=== PATIENT | female | born 1955 | race African-American/Black ===

== ENCOUNTER 2023-02-14 09:50 | Inpatient (IN) | payer MEDICARE, MEDICAID ==
[~2023-02-14] VITALS: Ht 162.6 cm; Wt 93.0 kg
[2023-02-14] MEDS ORDERED: SODIUM CHLORIDE 0.9% 1000ML BAG (SEPSIS BOLUS) IV ONE (10:15)
[2023-02-14 10:49] LABS: BASOPHILS % 0.7 % (0.0-2.0); EOSINOPHILS % 9.9 % (0.0-5.0); HEMOGLOBIN. 12.4 g/dL (12.0-16.0); LYMPHOCYTES % 29.6 % (20.0-50.0); MEAN CORPUSCULAR HEMOGLOBIN 31.1 pg (28.0-32.0); MEAN CORPUSCULAR HGB CONC 33.4 g/dL (31.0-37.0); MEAN CORPUSCULAR VOLUME 93.1 fL (81.0-99.0); MEAN PLATELET VOLUME 8.9 fl (7.4-10.4); MONOCYTES % 9.4 % (2.0-8.0); NEUTROPHILS % 50.4 % (40.0-76.0); PLATELET 360 x1000/uL (130-400); RED BLOOD CELL COUNT 3.97 mill/uL (4.2-5.4); RED CELL DISTRIBUTION WIDTH 14.7 % (11.6-14.6); WHITE BLOOD COUNT 6.5 x1000/uL (4.5-11.0)
[2023-02-14 10:57] LABS: CHLORIDE 103 mEq/L (98-107); INDEX HEMOLYSI 1 (1-3); INDEX ICTERIC 1 (1-4); INDEX LIPEMIC 1 (1-3); POTASSIUM 3.4 mEq/L (3.5-5.1); SODIUM 134 mEq/L (136-145)
[2023-02-14 11:10] LABS: ALANINE AMINOTRANSFERASE 45 IU/L (13-61); ALBUMIN 3.1 g/dL (3.4-5.0); ASPARTATE AMINOTRANSFERASE 54 IU/L (15-37); BILIRUBIN TOTAL 1.1 mg/dL (0.1-1.0); CALCIUM 9.8 mg/dL (8.5-10.1); CARBON DIOXIDE 27 mEq/L (21-32); CREATININE 1.7 mg/dL (0.6-1.3); GLUCOSE 96 mg/dL (70-105); PROTEIN TOTAL 7.6 g/dL (6.0-8.3); UREA NITROGEN BLOOD 15 mg/dL (7-21)
[2023-02-14 12:01] LABS: TROPONIN I HIGH SENSITIVITY 86 ng/L (<54)
[2023-02-14] MEDS ORDERED: CLONIDINE 0.1MG TABLET PO PRN (15:45)
[2023-02-14] MEDS ORDERED: ZOLPIDEM TARTRATE 5MG TABLET PO PRN (15:45)
[2023-02-14] MEDS ORDERED: IPRATROPIUM/ALBUTEROL 0.5-3(2.5)MG/3ML NEB NEB PRN (15:45)
[2023-02-14] MEDS ORDERED: GUAIFENESIN 200MG/10ML SUGAR FREE UDC PO PRN (15:45)
[2023-02-14] MEDS ORDERED: ONDANSETRON HCL 4MG/2ML INJ IV PRN (15:45)
[2023-02-14] MEDS ORDERED: POTASSIUM CHLORIDE 20MEQ TABLET SR PO NR (15:45)
[2023-02-14 20:00] VITALS: BP 123/73; PULSE 92; RESP 18; TEMP 99.2
[2023-02-14] MEDS: ACETAMINOPHEN 325MG TABLET PO PRN (20:57)
[2023-02-14] MEDS: SODIUM CHLORIDE 0.9% INJ 3ML FLUSH IVF SCH (21:06)
[2023-02-14] MEDS: ENOXAPARIN 40MG/0.4ML SYR SUBCUT SCH (21:43)
[2023-02-14 22:00] VITALS: BP 133/84; PULSE 95; RESP 18; TEMP 97.9
[2023-02-14] MEDS ORDERED: LATA2.5D14 LEFTEYE (22:11)
[2023-02-14] MEDS ORDERED: BRIM5DRO6 LEFTEYE (22:11)
[2023-02-14] MEDS ORDERED: DORZ1DRO7 LEFTEYE (22:11)
[2023-02-14] MEDS ORDERED: ASPI-1406 PO (22:13)
[2023-02-14] MEDS ORDERED: METO25TA6 PO (22:13)
[2023-02-14] MEDS ORDERED: PANT40TA51 PO (22:13)
[2023-02-14] MEDS ORDERED: LISI10TA26 PO (22:13)
[2023-02-14] MEDS ORDERED: ATOR-2 PO (22:13)
[2023-02-14] MEDS ORDERED: ALBU6.7H3 IH (22:13)
[2023-02-14] MEDS ORDERED: AMLO10TA80 PO (22:13)
[2023-02-14] MEDS: SODIUM CHLORIDE 0.9% 1,000 ML IV SCH (22:23)
[2023-02-15] VITALS (8 sets, daily range): BP systolic 95–135; BP diastolic 54–91; PULSE 79–107; RESP 18–20; TEMP 97.1–99.8
[2023-02-15] MEDS: BRIMONIDINE 0.2% OPHTH DROPS 5ML LEFTEYE SCH ×4 (01:20→21:06)
[2023-02-15] MEDS: LATANOPROST 0.005% OPHTH DROPS 2.5ML LEFTEYE SCH ×2 (01:20→21:06)
[2023-02-15] MEDS: SODIUM CHLORIDE 0.9% INJ 3ML FLUSH IVF SCH ×3 (05:32→21:05)
[2023-02-15] MEDS: ASPIRIN 81MG EC TABLET PO SCH (09:09)
[2023-02-15] MEDS: CHOLECALCIFEROL (D3) 1000 UNIT TABLET PO SCH (09:09)
[2023-02-15] MEDS: FOLIC ACID 1MG TABLET PO SCH (09:10)
[2023-02-15] MEDS: DORZOLAM/TIMOLOL 2.23/0.68% OPHTH DROPS 10ML LEFTEYE SCH ×2 (09:10→21:06)
[2023-02-15] MEDS: SODIUM CHLORIDE 0.9% 1,000 ML IV SCH ×2 (09:11→18:24)
[2023-02-15 13:03] LABS: HEPATITIS B SURFACE ANTIGEN NEGATIVE
[2023-02-15 13:31] LABS: HEPATITIS C VIR.AB 0.16 INDEXVAL (0.00-0.80)
[2023-02-15] MEDS: ENOXAPARIN 40MG/0.4ML SYR SUBCUT SCH (17:41)
[2023-02-15] MEDS: ATORVASTATIN CALCIUM 40MG TABLET PO SCH (21:05)
[2023-02-16] VITALS (7 sets, daily range): BP systolic 102–151; BP diastolic 59–94; PULSE 85–100; RESP 18–20; TEMP 97.7–98.8
[2023-02-16] MEDS: SODIUM CHLORIDE 0.9% 1,000 ML IV SCH ×2 (03:32→13:59)
[2023-02-16] MEDS: SODIUM CHLORIDE 0.9% INJ 3ML FLUSH IVF SCH ×3 (05:38→21:42)
[2023-02-16] MEDS: BRIMONIDINE 0.2% OPHTH DROPS 5ML LEFTEYE SCH ×3 (05:40→21:42)
[2023-02-16] MEDS: ASPIRIN 81MG EC TABLET PO SCH (08:46)
[2023-02-16] MEDS: CHOLECALCIFEROL (D3) 1000 UNIT TABLET PO SCH (08:46)
[2023-02-16] MEDS: FOLIC ACID 1MG TABLET PO SCH (08:46)
[2023-02-16] MEDS: DORZOLAM/TIMOLOL 2.23/0.68% OPHTH DROPS 10ML LEFTEYE SCH ×2 (08:47→21:41)
[2023-02-16] MEDS: ACETAMINOPHEN 325MG TABLET PO PRN (13:43)
[2023-02-16] MEDS ORDERED: HALOPERIDOL LACTATE 5MG/ML VIAL IM NR (16:45)
[2023-02-16] MEDS: ENOXAPARIN 40MG/0.4ML SYR SUBCUT SCH (17:28)
[2023-02-16] MEDS: NICOTINE 14MG PATCH TD SCH (17:38)
[2023-02-16] MEDS: PANTOPRAZOLE SODIUM 40 MG/VIAL IV SCH (17:41)
[2023-02-16] MEDS: POTASSIUM CHLORIDE INJ 10 MEQ in DEXT 5%/0.9% NACL 1,000 ML IV SCH (17:41)
[2023-02-16] MEDS: LATANOPROST 0.005% OPHTH DROPS 2.5ML LEFTEYE SCH (21:41)
[2023-02-16] MEDS: ATORVASTATIN CALCIUM 40MG TABLET PO SCH (21:41)
[2023-02-17] VITALS: BP 110/62; PULSE 90; RESP 18; TEMP 98.6
[2023-02-17] MEDS: POTASSIUM CHLORIDE INJ 10 MEQ in DEXT 5%/0.9% NACL 1,000 ML IV SCH ×3 (05:44→23:59)
[2023-02-17] MEDS: SODIUM CHLORIDE 0.9% INJ 3ML FLUSH IVF SCH ×3 (05:45→21:13)
[2023-02-17] MEDS: PANTOPRAZOLE SODIUM 40 MG/VIAL IV SCH ×2 (05:45→18:00)
[2023-02-17] MEDS: BRIMONIDINE 0.2% OPHTH DROPS 5ML LEFTEYE SCH ×3 (05:46→21:13)
[2023-02-17 06:37] LABS: CHLORIDE 110 mEq/L (98-107); INDEX HEMOLYSI 1 (1-3); INDEX ICTERIC 1 (1-4); INDEX LIPEMIC 1 (1-3); POTASSIUM 3.4 mEq/L (3.5-5.1); SODIUM 138 mEq/L (136-145)
[2023-02-17 06:44] LABS: ALANINE AMINOTRANSFERASE 38 IU/L (13-61); ALBUMIN 2.6 g/dL (3.4-5.0); ASPARTATE AMINOTRANSFERASE 53 IU/L (15-37); BILIRUBIN TOTAL 1.1 mg/dL (0.1-1.0); CALCIUM 8.8 mg/dL (8.5-10.1); CARBON DIOXIDE 22 mEq/L (21-32); GLUCOSE 73 mg/dL (70-105); PHOSPHORUS 4.6 mg/dL (2.5-4.9); PROTEIN TOTAL 6.5 g/dL (6.0-8.3); UREA NITROGEN BLOOD 8 mg/dL (7-21)
[2023-02-17 07:29] LABS: BASOPHILS % 0.4 % (0.0-2.0); EOSINOPHILS % 12.6 % (0.0-5.0); HEMATOCRIT. 32.7 % (36.0-48.0); HEMOGLOBIN. 10.9 g/dL (12.0-16.0); LYMPHOCYTES % 25.8 % (20.0-50.0); MEAN CORPUSCULAR HEMOGLOBIN 31.3 pg (28.0-32.0); MEAN CORPUSCULAR HGB CONC 33.2 g/dL (31.0-37.0); MEAN CORPUSCULAR VOLUME 94.5 fL (81.0-99.0); MEAN PLATELET VOLUME 8.8 fl (7.4-10.4); MONOCYTES % 8.6 % (2.0-8.0); NEUTROPHILS % 52.6 % (40.0-76.0); PLATELET 377 x1000/uL (130-400); RED BLOOD CELL COUNT 3.47 mill/uL (4.2-5.4); RED CELL DISTRIBUTION WIDTH 14.9 % (11.6-14.6); WHITE BLOOD COUNT 5.5 x1000/uL (4.5-11.0)
[2023-02-17 07:44] VITALS: BP 131/83; PULSE 100; RESP 20; TEMP 97.5
[2023-02-17] MEDS: FOLIC ACID 1MG TABLET PO SCH (09:00)
[2023-02-17] MEDS: ASPIRIN 81MG EC TABLET PO SCH (09:00)
[2023-02-17] MEDS: CHOLECALCIFEROL (D3) 1000 UNIT TABLET PO SCH (09:00)
[2023-02-17] MEDS: DORZOLAM/TIMOLOL 2.23/0.68% OPHTH DROPS 10ML LEFTEYE SCH ×2 (09:00→20:26)
[2023-02-17] MEDS: NICOTINE 14MG PATCH TD SCH (09:00)
[2023-02-17] MEDS ORDERED: POTASSIUM CHLORIDE INJ 40 MEQ in DEXT 5% WATER 500 ML IV NR (11:00)
[2023-02-17 12:00] VITALS: BP 140/92; PULSE 92; RESP 18; TEMP 97.4
[2023-02-17] MEDS: BUDESONIDE 0.5MG/2ML NEB HHN SCH ×2 (12:31→22:01)
[2023-02-17] MEDS ORDERED: HALOPERIDOL LACTATE 5MG/ML VIAL IM NR (14:00)
[2023-02-17 16:00] VITALS: BP 146/91; PULSE 89; RESP 18; TEMP 97.7
[2023-02-17] MEDS: ENOXAPARIN 40MG/0.4ML SYR SUBCUT SCH (16:30)
[2023-02-17 20:00] VITALS: BP 179/94; PULSE 117; RESP 17; TEMP 98.6
[2023-02-17] MEDS: ACETAMINOPHEN 325MG TABLET PO PRN (20:24)
[2023-02-17] MEDS: ATORVASTATIN CALCIUM 40MG TABLET PO SCH (20:24)
[2023-02-17] MEDS: CLONIDINE 0.1MG TABLET PO PRN (20:24)
[2023-02-17] MEDS: RISPERIDONE 1MG TABLET PO SCH (20:25)
[2023-02-17] MEDS: LATANOPROST 0.005% OPHTH DROPS 2.5ML LEFTEYE SCH (20:25)
[2023-02-17 22:02] VITALS: PULSE 115; RESP 18; O2SAT 96
[2023-02-18] VITALS: BP 177/92; PULSE 110; RESP 22; TEMP 100.6
[2023-02-18] MEDS: HYDRALAZINE 20MG/ML VIAL IV PRN ×2 (00:20→07:01)
[2023-02-18] MEDS: CLONIDINE 0.1MG TABLET PO PRN (03:56)
[2023-02-18 04:00] VITALS: BP 187/104; PULSE 104; RESP 17; TEMP 99.8
[2023-02-18] MEDS: PANTOPRAZOLE SODIUM 40 MG/VIAL IV SCH ×2 (05:18→18:00)
[2023-02-18] MEDS: BRIMONIDINE 0.2% OPHTH DROPS 5ML LEFTEYE SCH ×3 (05:19→21:39)
[2023-02-18] MEDS: SODIUM CHLORIDE 0.9% INJ 3ML FLUSH IVF SCH ×3 (05:19→21:38)
[2023-02-18 06:10] LABS: BASOPHILS % 0.4 % (0.0-2.0); EOSINOPHILS % 10.6 % (0.0-5.0); HEMATOCRIT. 36.7 % (36.0-48.0); HEMOGLOBIN. 12.1 g/dL (12.0-16.0); MEAN CORPUSCULAR HEMOGLOBIN 30.7 pg (28.0-32.0); MEAN CORPUSCULAR VOLUME 93.1 fL (81.0-99.0); MEAN PLATELET VOLUME 8.5 fl (7.4-10.4); PLATELET 412 x1000/uL (130-400); RED BLOOD CELL COUNT 3.94 mill/uL (4.2-5.4); WHITE BLOOD COUNT 5.8 x1000/uL (4.5-11.0)
[2023-02-18 06:15] LABS: INR 1.1; PROTHROMBIN TIME 11.7 sec (9.6-11.0)
[2023-02-18 07:01] LABS: CHLORIDE 110 mEq/L (98-107); INDEX HEMOLYSI 1 (1-3); INDEX ICTERIC 1 (1-4); INDEX LIPEMIC 1 (1-3); POTASSIUM 3.1 mEq/L (3.5-5.1); SODIUM 141 mEq/L (136-145)
[2023-02-18 07:10] LABS: CALCIUM 9.5 mg/dL (8.5-10.1); CARBON DIOXIDE 21 mEq/L (21-32); CREATININE 0.8 mg/dL (0.6-1.3); GLUCOSE 113 mg/dL (70-105); UREA NITROGEN BLOOD 5 mg/dL (7-21)
[2023-02-18 08:00] VITALS: BP 122/67; PULSE 105; RESP 18; TEMP 97.4
[2023-02-18] MEDS ORDERED: POTASSIUM CHLORIDE INJ 40 MEQ in DEXT 5% WATER 500 ML IV ONE (09:30)
[2023-02-18] MEDS: KCL 20MEQ/100ML X 2 FOR TOTAL KCL 40MEQ/200ML IV SCH ×2 (10:07→13:41)
[2023-02-18] MEDS: DORZOLAM/TIMOLOL 2.23/0.68% OPHTH DROPS 10ML LEFTEYE SCH ×2 (10:07→21:36)
[2023-02-18] MEDS: NICOTINE 14MG PATCH TD SCH (10:09)
[2023-02-18] MEDS: CHOLECALCIFEROL (D3) 1000 UNIT TABLET PO SCH (10:11)
[2023-02-18] MEDS: FOLIC ACID 1MG TABLET PO SCH (10:11)
[2023-02-18 12:00] VITALS: BP 137/88; PULSE 103; RESP 20; TEMP 97.1
[2023-02-18] MEDS: CEFAZOLIN 1000MG PREMIX 50 ML IV SCH ×2 (13:42→21:37)
[2023-02-18 16:00] VITALS: BP 135/87; PULSE 114; RESP 18; TEMP 97
[2023-02-18] MEDS ORDERED: PROPOFOL 200MG/20ML VIAL IV ONE (16:38)
[2023-02-18] MEDS ORDERED: ACETAMINOPHEN 650MG SUPP PR NR (17:30)
[2023-02-18 20:00] VITALS: BP 134/71; PULSE 118; RESP 19; TEMP 100.5
[2023-02-18] MEDS: LATANOPROST 0.005% OPHTH DROPS 2.5ML LEFTEYE SCH (21:36)
[2023-02-18] MEDS: ATORVASTATIN CALCIUM 40MG TABLET PO SCH (21:37)
[2023-02-18] MEDS: RISPERIDONE 1MG TABLET PO SCH (21:37)
[2023-02-18] MEDS: POTASSIUM CHLORIDE INJ 10 MEQ in DEXT 5%/0.9% NACL 1,000 ML IV SCH (23:03)
[2023-02-19] VITALS (8 sets, daily range): BP systolic 115–178; BP diastolic 72–86; PULSE 99–116; RESP 17–20; TEMP 97.5–101.1; O2SAT 95
[2023-02-19] MEDS: ACETAMINOPHEN 325MG TABLET PO PRN ×2 (04:34→11:14)
[2023-02-19] MEDS: HYDRALAZINE 20MG/ML VIAL IV PRN (04:35)
[2023-02-19] MEDS: PANTOPRAZOLE SODIUM 40 MG/VIAL IV SCH ×2 (05:00→16:21)
[2023-02-19] MEDS: CEFAZOLIN 1000MG PREMIX 50 ML IV SCH ×2 (05:00→15:19)
[2023-02-19] MEDS: SODIUM CHLORIDE 0.9% INJ 3ML FLUSH IVF SCH ×3 (05:01→22:00)
[2023-02-19] MEDS: BRIMONIDINE 0.2% OPHTH DROPS 5ML LEFTEYE SCH ×3 (05:01→22:00)
[2023-02-19 06:55] LABS: HEMATOCRIT. 34.6 % (36.0-48.0); HEMOGLOBIN. 11.4 g/dL (12.0-16.0); MEAN CORPUSCULAR HEMOGLOBIN 30.8 pg (28.0-32.0); MEAN CORPUSCULAR VOLUME 93.3 fL (81.0-99.0); MEAN PLATELET VOLUME 8.8 fl (7.4-10.4); PLATELET 390 x1000/uL (130-400); RED BLOOD CELL COUNT 3.71 mill/uL (4.2-5.4); WHITE BLOOD COUNT 6.5 x1000/uL (4.5-11.0)
[2023-02-19 07:11] LABS: DIFFERENTIAL COMMENT 1
[2023-02-19] MEDS: FOLIC ACID 1MG TABLET PO SCH (08:28)
[2023-02-19] MEDS: NICOTINE 14MG PATCH TD SCH (08:28)
[2023-02-19] MEDS: ASPIRIN 81MG EC TABLET PO SCH (08:28)
[2023-02-19] MEDS: CHOLECALCIFEROL (D3) 1000 UNIT TABLET PO SCH (08:28)
[2023-02-19] MEDS: DORZOLAM/TIMOLOL 2.23/0.68% OPHTH DROPS 10ML LEFTEYE SCH ×2 (08:29→21:20)
[2023-02-19] MEDS: POTASSIUM CHLORIDE INJ 10 MEQ in DEXT 5%/0.9% NACL 1,000 ML IV SCH ×2 (08:29→19:30)
[2023-02-19 15:58] LABS: CHLORIDE 112 mEq/L (98-107); INDEX HEMOLYSI 1 (1-3); INDEX ICTERIC 1 (1-4); INDEX LIPEMIC 1 (1-3); POTASSIUM 4.1 mEq/L (3.5-5.1); SODIUM 141 mEq/L (136-145)
[2023-02-19 16:07] LABS: CALCIUM 9.7 mg/dL (8.5-10.1); CARBON DIOXIDE 18 mEq/L (21-32); GLUCOSE 175 mg/dL (70-105); UREA NITROGEN BLOOD 9 mg/dL (7-21)
[2023-02-19] MEDS: ENOXAPARIN 40MG/0.4ML SYR SUBCUT SCH (16:21)
[2023-02-19 20:54] LABS: PLATELET ESTIMATE NORMAL
[2023-02-19] MEDS: RISPERIDONE 1MG TABLET PO SCH (21:19)
[2023-02-19] MEDS: ATORVASTATIN CALCIUM 40MG TABLET PO SCH (21:19)
[2023-02-19] MEDS: LATANOPROST 0.005% OPHTH DROPS 2.5ML LEFTEYE SCH (21:20)
[2023-02-19] MEDS ORDERED: RISPERIDONE 1MG TABLET PO SCH (23:00)
[2023-02-20] VITALS: BP 155/88; PULSE 108; RESP 19; TEMP 98.7
[2023-02-20] MEDS: SODIUM CHLORIDE 0.9% INJ 3ML FLUSH IVF SCH ×2 (06:00→14:00)
[2023-02-20 08:00] VITALS: BP 185/95; PULSE 113; RESP 20; TEMP 97.8
[2023-02-20] MEDS: CHOLECALCIFEROL (D3) 1000 UNIT TABLET PO SCH (09:44)
[2023-02-20] MEDS: FOLIC ACID 1MG TABLET PO SCH (09:44)
[2023-02-20] MEDS: NICOTINE 14MG PATCH TD SCH (09:44)
[2023-02-20] MEDS: ASPIRIN 81MG EC TABLET PO SCH (09:44)
[2023-02-20] MEDS: THIAMINE HCL 100MG TABLET GT SCH (09:44)
[2023-02-20] MEDS: CLONIDINE 0.1MG TABLET PO PRN ×2 (09:45→16:48)
[2023-02-20] MEDS: DORZOLAM/TIMOLOL 2.23/0.68% OPHTH DROPS 10ML LEFTEYE SCH ×2 (09:49→21:00)
[2023-02-20 12:00] VITALS: BP 170/101; PULSE 117; RESP 20; TEMP 97.7
[2023-02-20] MEDS: ENOXAPARIN 40MG/0.4ML SYR SUBCUT SCH (16:30)
[2023-02-20] MEDS: METOPROLOL TARTRATE 25MG TABLET GT SCH ×2 (17:34→22:29)
[2023-02-20] MEDS: LATANOPROST 0.005% OPHTH DROPS 2.5ML LEFTEYE SCH (21:00)
[2023-02-20] MEDS: ATORVASTATIN CALCIUM 40MG TABLET PO SCH (22:28)
[2023-02-20] MEDS: RISPERIDONE 1MG TABLET PO SCH (22:28)
[2023-02-21] VITALS: BP 109/70; PULSE 100; RESP 16; TEMP 98.4
[2023-02-21 04:00] VITALS: BP 98/59; PULSE 101; RESP 16; TEMP 97.9
[2023-02-21] MEDS: PANTOPRAZOLE SODIUM 40 MG/VIAL IV SCH ×2 (06:26→17:42)
[2023-02-21 08:00] VITALS: BP 102/62; PULSE 119; RESP 20; TEMP 98.9
[2023-02-21] MEDS: METOPROLOL TARTRATE 25MG TABLET GT SCH ×2 (09:07→21:14)
[2023-02-21] MEDS: THIAMINE HCL 100MG TABLET GT SCH (09:07)
[2023-02-21] MEDS: ASPIRIN 81MG EC TABLET PO SCH (09:07)
[2023-02-21] MEDS: CHOLECALCIFEROL (D3) 1000 UNIT TABLET PO SCH (09:07)
[2023-02-21] MEDS: NICOTINE 14MG PATCH TD SCH (09:07)
[2023-02-21] MEDS: POTASSIUM CHLORIDE INJ 10 MEQ in DEXT 5%/0.9% NACL 1,000 ML IV SCH ×3 (09:10→20:21)
[2023-02-21] MEDS: DORZOLAM/TIMOLOL 2.23/0.68% OPHTH DROPS 10ML LEFTEYE SCH ×2 (09:10→21:00)
[2023-02-21] MEDS: FOLIC ACID 1MG TABLET PO SCH (10:18)
[2023-02-21 12:00] VITALS: BP 103/64; PULSE 91; RESP 20; TEMP 96.8
[2023-02-21 16:00] VITALS: BP 108/61; PULSE 96; RESP 20; TEMP 97
[2023-02-21] MEDS: ENOXAPARIN 40MG/0.4ML SYR SUBCUT SCH (17:38)
[2023-02-21 20:00] VITALS: BP 141/78; PULSE 98; RESP 18; TEMP 98
[2023-02-21] MEDS: LATANOPROST 0.005% OPHTH DROPS 2.5ML LEFTEYE SCH (21:00)
[2023-02-21] MEDS: RISPERIDONE 1MG TABLET PO SCH (21:13)
[2023-02-21] MEDS: ATORVASTATIN CALCIUM 40MG TABLET PO SCH (21:13)
[2023-02-22] VITALS: BP 141/78; PULSE 90; RESP 18; TEMP 97.5
[2023-02-22] MEDS: POTASSIUM CHLORIDE INJ 10 MEQ in DEXT 5%/0.9% NACL 1,000 ML IV SCH ×3 (02:56→16:47)
[2023-02-22 04:00] VITALS: BP 132/75; PULSE 94; RESP 18; TEMP 97.8
[2023-02-22 08:00] VITALS: BP 150/91; PULSE 95; RESP 18; TEMP 96.7
[2023-02-22] MEDS: THIAMINE HCL 100MG TABLET GT SCH (08:44)
[2023-02-22] MEDS: FOLIC ACID 1MG TABLET PO SCH (08:44)
[2023-02-22] MEDS: CHOLECALCIFEROL (D3) 1000 UNIT TABLET PO SCH (08:44)
[2023-02-22] MEDS: NICOTINE 14MG PATCH TD SCH (08:44)
[2023-02-22] MEDS: ASPIRIN 81MG EC TABLET PO SCH (08:44)
[2023-02-22] MEDS: METOPROLOL TARTRATE 25MG TABLET GT SCH ×2 (08:44→20:48)
[2023-02-22] MEDS: DORZOLAM/TIMOLOL 2.23/0.68% OPHTH DROPS 10ML LEFTEYE SCH ×2 (08:45→20:51)
[2023-02-22 12:00] VITALS: BP 148/78; PULSE 86; RESP 18; TEMP 96.6
[2023-02-22] MEDS: BRIMONIDINE 0.2% OPHTH DROPS 5ML LEFTEYE SCH ×2 (13:03→22:00)
[2023-02-22 16:00] VITALS: BP 132/72; PULSE 76; RESP 17; TEMP 97.3
[2023-02-22] MEDS: ENOXAPARIN 40MG/0.4ML SYR SUBCUT SCH (16:30)
[2023-02-22] MEDS: PANTOPRAZOLE SODIUM 40 MG/VIAL IV SCH (16:44)
[2023-02-22] MEDS: RISPERIDONE 1MG TABLET PO SCH (20:50)
[2023-02-22] MEDS: ATORVASTATIN CALCIUM 40MG TABLET PO SCH (20:50)
[2023-02-22] MEDS: LATANOPROST 0.005% OPHTH DROPS 2.5ML LEFTEYE SCH (20:51)
[2023-02-23] MEDS: METOPROLOL TARTRATE 25MG TABLET GT SCH ×2 (08:23→21:45)
[2023-02-23] MEDS: NICOTINE 14MG PATCH TD SCH (08:24)
[2023-02-23] MEDS: THIAMINE HCL 100MG TABLET GT SCH (08:24)
[2023-02-23] MEDS: FOLIC ACID 1MG TABLET PO SCH (08:24)
[2023-02-23] MEDS: CHOLECALCIFEROL (D3) 1000 UNIT TABLET PO SCH (08:24)
[2023-02-23] MEDS: ASPIRIN 81MG EC TABLET PO SCH (08:24)
[2023-02-23] MEDS: DORZOLAM/TIMOLOL 2.23/0.68% OPHTH DROPS 10ML LEFTEYE SCH (08:24)
[2023-02-23] MEDS: POTASSIUM CHLORIDE INJ 10 MEQ in DEXT 5%/0.9% NACL 1,000 ML IV SCH ×2 (10:00→19:28)
[2023-02-23 11:02] LABS: BASOPHILS % 0.4 % (0.0-2.0); HEMATOCRIT. 32.1 % (36.0-48.0); HEMOGLOBIN. 10.4 g/dL (12.0-16.0); LYMPHOCYTES % 17.9 % (20.0-50.0); MEAN CORPUSCULAR HEMOGLOBIN 29.9 pg (28.0-32.0); MEAN CORPUSCULAR HGB CONC 32.5 g/dL (31.0-37.0); MEAN CORPUSCULAR VOLUME 91.9 fL (81.0-99.0); MEAN PLATELET VOLUME 9.2 fl (7.4-10.4); MONOCYTES % 12.6 % (2.0-8.0); NEUTROPHILS % 62.1 % (40.0-76.0); PLATELET 412 x1000/uL (130-400); RED BLOOD CELL COUNT 3.49 mill/uL (4.2-5.4); RED CELL DISTRIBUTION WIDTH 15.1 % (11.6-14.6); WHITE BLOOD COUNT 7.1 x1000/uL (4.5-11.0)
[2023-02-23 11:18] LABS: CHLORIDE 107 mEq/L (98-107); INDEX HEMOLYSI 1 (1-3); INDEX ICTERIC 1 (1-4); INDEX LIPEMIC 1 (1-3); POTASSIUM 3.9 mEq/L (3.5-5.1); SODIUM 137 mEq/L (136-145)
[2023-02-23 11:27] LABS: ALANINE AMINOTRANSFERASE 23 IU/L (13-61); ALBUMIN 2.4 g/dL (3.4-5.0); ASPARTATE AMINOTRANSFERASE 28 IU/L (15-37); BILIRUBIN TOTAL 1.2 mg/dL (0.1-1.0); CALCIUM 9.1 mg/dL (8.5-10.1); CARBON DIOXIDE 26 mEq/L (21-32); CREATININE 0.9 mg/dL (0.6-1.3); GLUCOSE 127 mg/dL (70-105); PROTEIN TOTAL 7.1 g/dL (6.0-8.3); UREA NITROGEN BLOOD 13 mg/dL (7-21)
[2023-02-23 12:41] LABS: CLARITY URINE CLEAR (CLEAR); COLOR URINE DARK YELLOW (YELLOW); GLUCOSE URINE NEGATIVE (NEGATIVE); KETONES URINE NEGATIVE (NEGATIVE); LEUKOCYTE ESTERASE URINE NEGATIVE (NEGATIVE); NITRITE URINE NEGATIVE (NEGATIVE); OCCULT BLOOD URINE NEGATIVE (NEGATIVE); PH URINE 5.5 (4.5-8.0); PROTEIN URINE 1+ (NEGATIVE); SPECIFIC GRAVITY URINE 1.017 (1.005-1.030)
[2023-02-23 12:45] LABS: BACTERIA URINE NONE SEEN; RBC URINE 0-2 /hpf (0-2); WBC URINE 0-2 /hpf (0-2); YEAST URINE NONE SEEN
[2023-02-23 12:59] LABS: SQUAMOUS EPITHELIAL CELL URINE FEW /lpf (RARE/1+)
[2023-02-23] MEDS: AMLODIPINE 5MG TABLET PEG SCH ×2 (13:03→21:46)
[2023-02-23] MEDS: BRIMONIDINE 0.2% OPHTH DROPS 5ML LEFTEYE SCH (14:00)
[2023-02-23] MEDS: PANTOPRAZOLE SODIUM 40 MG/VIAL IV SCH ×2 (17:47→17:55)
[2023-02-23] MEDS: ENOXAPARIN 40MG/0.4ML SYR SUBCUT SCH (17:48)
[2023-02-23] MEDS: ACETAMINOPHEN 325MG TABLET PO PRN (19:27)
[2023-02-23 20:00] VITALS: BP 132/87; PULSE 52; RESP 16; TEMP 97.3
[2023-02-23] MEDS: ATORVASTATIN CALCIUM 40MG TABLET PO SCH (21:44)
[2023-02-23] MEDS: RISPERIDONE 1MG TABLET PO SCH (21:45)
[2023-02-23] MEDS: SODIUM CHLORIDE 0.9% INJ 3ML FLUSH IVF SCH (21:47)
[2023-02-24] MEDS: PANTOPRAZOLE SODIUM 40 MG/VIAL IV SCH ×2 (05:14→17:00)
[2023-02-24] MEDS: SODIUM CHLORIDE 0.9% INJ 3ML FLUSH IVF SCH ×3 (05:18→22:00)
[2023-02-24 08:00] VITALS: BP 124/71; PULSE 101; RESP 18; TEMP 98.6
[2023-02-24] MEDS: METOPROLOL TARTRATE 25MG TABLET GT SCH ×2 (10:56→21:00)
[2023-02-24] MEDS: CHOLECALCIFEROL (D3) 1000 UNIT TABLET PO SCH (10:56)
[2023-02-24] MEDS: FOLIC ACID 1MG TABLET PO SCH (10:56)
[2023-02-24] MEDS: ASPIRIN 81MG EC TABLET PO SCH (10:56)
[2023-02-24] MEDS: THIAMINE HCL 100MG TABLET GT SCH (10:56)
[2023-02-24] MEDS: NICOTINE 14MG PATCH TD SCH (10:56)
[2023-02-24] MEDS: AMLODIPINE 5MG TABLET PEG SCH ×2 (10:57→21:00)
[2023-02-24 12:00] VITALS: BP 119/71; PULSE 88; RESP 14; TEMP 101.3
[2023-02-24] MEDS: BRIMONIDINE 0.2% OPHTH DROPS 5ML LEFTEYE SCH ×2 (14:00→22:00)
[2023-02-24] MEDS ORDERED: HYDRALAZINE 10 MG in SODIUM CHLORIDE 0.9% 49.5 ML IV PRN (15:15)
[2023-02-24 16:00] VITALS: BP 106/60; PULSE 94; RESP 17; TEMP 100.6
[2023-02-24] MEDS: ACETAMINOPHEN 325MG TABLET PO PRN (16:59)
[2023-02-24] MEDS: ENOXAPARIN 40MG/0.4ML SYR SUBCUT SCH (17:00)
[2023-02-24 20:00] VITALS: BP 107/66; PULSE 91; RESP 18; TEMP 97.3
[2023-02-24] MEDS: ATORVASTATIN CALCIUM 40MG TABLET PO SCH (21:00)
[2023-02-24] MEDS: LATANOPROST 0.005% OPHTH DROPS 2.5ML LEFTEYE SCH (21:00)
[2023-02-24] MEDS: RISPERIDONE 1MG TABLET PO SCH (21:00)
[2023-02-24] MEDS: DORZOLAM/TIMOLOL 2.23/0.68% OPHTH DROPS 10ML LEFTEYE SCH (21:00)
[2023-02-25 04:00] VITALS: BP 115/63; PULSE 88; RESP 16; TEMP 98.1
[2023-02-25] MEDS: BRIMONIDINE 0.2% OPHTH DROPS 5ML LEFTEYE SCH ×3 (06:00→22:08)
[2023-02-25] MEDS: PANTOPRAZOLE SODIUM 40 MG/VIAL IV SCH ×2 (06:00→19:11)
[2023-02-25] MEDS: SODIUM CHLORIDE 0.9% INJ 3ML FLUSH IVF SCH ×3 (06:00→22:00)
[2023-02-25] MEDS: POTASSIUM CHLORIDE INJ 10 MEQ in DEXT 5%/0.9% NACL 1,000 ML IV SCH (06:49)
[2023-02-25 08:00] VITALS: BP 126/60; PULSE 96; RESP 20; TEMP 98
[2023-02-25] MEDS: DORZOLAM/TIMOLOL 2.23/0.68% OPHTH DROPS 10ML LEFTEYE SCH ×2 (09:00→22:08)
[2023-02-25] MEDS: NICOTINE 14MG PATCH TD SCH (09:16)
[2023-02-25] MEDS: METOPROLOL TARTRATE 25MG TABLET GT SCH ×2 (09:17→22:08)
[2023-02-25] MEDS: THIAMINE HCL 100MG TABLET GT SCH (09:17)
[2023-02-25] MEDS: CHOLECALCIFEROL (D3) 1000 UNIT TABLET PO SCH (09:17)
[2023-02-25] MEDS: FOLIC ACID 1MG TABLET PO SCH (09:17)
[2023-02-25] MEDS: AMLODIPINE 5MG TABLET PEG SCH ×2 (09:18→22:07)
[2023-02-25] MEDS: ASPIRIN 81MG EC TABLET PO SCH (09:18)
[2023-02-25 12:00] VITALS: BP 114/63; PULSE 94; RESP 20; TEMP 97.8
[2023-02-25 16:00] VITALS: BP 122/58; PULSE 98; RESP 20; TEMP 102
[2023-02-25] MEDS: ENOXAPARIN 40MG/0.4ML SYR SUBCUT SCH (19:11)
[2023-02-25 20:00] VITALS: BP 112/69; PULSE 106; RESP 22; TEMP 102.2
[2023-02-25] MEDS: LATANOPROST 0.005% OPHTH DROPS 2.5ML LEFTEYE SCH (21:00)
[2023-02-25] MEDS: RISPERIDONE 1MG TABLET PO SCH (22:08)
[2023-02-25] MEDS: ATORVASTATIN CALCIUM 40MG TABLET PO SCH (22:08)
[2023-02-26] VITALS: BP 96/63; PULSE 102; RESP 20; TEMP 101.5
[2023-02-26] MEDS: POTASSIUM CHLORIDE INJ 10 MEQ in DEXT 5%/0.9% NACL 1,000 ML IV SCH ×2 (02:55→23:00)
[2023-02-26 04:00] VITALS: BP 110/69; PULSE 100; RESP 20; TEMP 101.3
[2023-02-26] MEDS: PANTOPRAZOLE SODIUM 40 MG/VIAL IV SCH ×2 (06:00→18:00)
[2023-02-26] MEDS: SODIUM CHLORIDE 0.9% INJ 3ML FLUSH IVF SCH ×3 (06:00→22:00)
[2023-02-26] MEDS: BRIMONIDINE 0.2% OPHTH DROPS 5ML LEFTEYE SCH ×3 (06:00→22:00)
[2023-02-26 08:00] VITALS: BP 101/77; PULSE 98; RESP 18; TEMP 99.1
[2023-02-26] MEDS: AMLODIPINE 5MG TABLET PEG SCH ×2 (08:32→21:00)
[2023-02-26] MEDS: THIAMINE HCL 100MG TABLET GT SCH (09:00)
[2023-02-26] MEDS: METOPROLOL TARTRATE 25MG TABLET GT SCH ×2 (09:00→21:00)
[2023-02-26] MEDS: DORZOLAM/TIMOLOL 2.23/0.68% OPHTH DROPS 10ML LEFTEYE SCH ×2 (09:00→21:00)
[2023-02-26] MEDS: ASPIRIN 81MG EC TABLET PO SCH (09:26)
[2023-02-26] MEDS: FOLIC ACID 1MG TABLET PO SCH (09:26)
[2023-02-26] MEDS: CHOLECALCIFEROL (D3) 1000 UNIT TABLET PO SCH (09:27)
[2023-02-26] MEDS: NICOTINE 14MG PATCH TD SCH (09:27)
[2023-02-26 12:00] VITALS: BP 134/76; PULSE 95; RESP 18; TEMP 98.3
[2023-02-26 16:00] VITALS: BP 127/76; PULSE 107; RESP 20; TEMP 97.9
[2023-02-26] MEDS: ENOXAPARIN 40MG/0.4ML SYR SUBCUT SCH (18:27)
[2023-02-26 20:00] VITALS: BP 167/77; PULSE 113; RESP 18; TEMP 97.8
[2023-02-26] MEDS: RISPERIDONE 1MG TABLET PO SCH (21:00)
[2023-02-26] MEDS: LATANOPROST 0.005% OPHTH DROPS 2.5ML LEFTEYE SCH (21:00)
[2023-02-26] MEDS: ATORVASTATIN CALCIUM 40MG TABLET PO SCH (21:00)
[2023-02-27] VITALS: BP 103/67; PULSE 98; RESP 18; TEMP 99.1
[2023-02-27 04:00] VITALS: BP 120/73; PULSE 102; RESP 18; TEMP 98.7
[2023-02-27] MEDS: BRIMONIDINE 0.2% OPHTH DROPS 5ML LEFTEYE SCH ×3 (06:00→22:00)
[2023-02-27] MEDS: SODIUM CHLORIDE 0.9% INJ 3ML FLUSH IVF SCH ×3 (06:00→22:00)
[2023-02-27] MEDS: PANTOPRAZOLE SODIUM 40 MG/VIAL IV SCH ×2 (06:00→18:23)
[2023-02-27 08:00] VITALS: BP 138/75; PULSE 100; RESP 19; TEMP 97.5
[2023-02-27] MEDS: NICOTINE 14MG PATCH TD SCH (09:00)
[2023-02-27] MEDS: AMLODIPINE 5MG TABLET PEG SCH ×2 (09:00→21:20)
[2023-02-27] MEDS: THIAMINE HCL 100MG TABLET GT SCH (09:41)
[2023-02-27] MEDS: ASPIRIN 81MG EC TABLET PO SCH (09:41)
[2023-02-27] MEDS: FOLIC ACID 1MG TABLET PO SCH (09:41)
[2023-02-27] MEDS: METOPROLOL TARTRATE 25MG TABLET GT SCH ×2 (09:42→20:56)
[2023-02-27] MEDS: CHOLECALCIFEROL (D3) 1000 UNIT TABLET PO SCH (09:43)
[2023-02-27] MEDS: DORZOLAM/TIMOLOL 2.23/0.68% OPHTH DROPS 10ML LEFTEYE SCH ×2 (09:44→21:08)
[2023-02-27] MEDS: DOCUSATE SODIUM SUGAR FREE 100MG/10ML UDC GT SCH (10:30)
[2023-02-27] MEDS ORDERED: LACTULOSE 20G/30ML UDC PO PRN (10:30)
[2023-02-27] MEDS ORDERED: BISACODYL 10MG SUPP PR PRN (10:30)
[2023-02-27 12:00] VITALS: BP 107/59; PULSE 90; RESP 20; TEMP 97.2
[2023-02-27 16:00] VITALS: BP 115/60; PULSE 94; RESP 19; TEMP 97.7
[2023-02-27] MEDS: ENOXAPARIN 40MG/0.4ML SYR SUBCUT SCH (16:30)
[2023-02-27] MEDS: POTASSIUM CHLORIDE INJ 10 MEQ in DEXT 5%/0.9% NACL 1,000 ML IV SCH (19:07)
[2023-02-27 20:00] VITALS: BP 145/74; PULSE 114; RESP 20; TEMP 98.2
[2023-02-27] MEDS: RISPERIDONE 1MG TABLET PO SCH (20:53)
[2023-02-27] MEDS: ATORVASTATIN CALCIUM 40MG TABLET PO SCH (20:53)
[2023-02-27] MEDS: LATANOPROST 0.005% OPHTH DROPS 2.5ML LEFTEYE SCH (21:08)
[2023-02-28] VITALS: BP 125/65; PULSE 101; RESP 20; TEMP 98
[2023-02-28 04:00] VITALS: BP 125/65; PULSE 101; RESP 20; TEMP 98
[2023-02-28] MEDS: PANTOPRAZOLE SODIUM 40 MG/VIAL IV SCH ×2 (06:00→19:07)
[2023-02-28] MEDS: SODIUM CHLORIDE 0.9% INJ 3ML FLUSH IVF SCH ×3 (06:00→22:08)
[2023-02-28] MEDS: BRIMONIDINE 0.2% OPHTH DROPS 5ML LEFTEYE SCH ×3 (06:00→21:51)
[2023-02-28 08:00] VITALS: BP 131/71; PULSE 108; RESP 20; TEMP 100
[2023-02-28] MEDS: DOCUSATE SODIUM SUGAR FREE 100MG/10ML UDC GT SCH (09:00)
[2023-02-28 12:00] VITALS: BP 138/79; PULSE 113; RESP 20; TEMP 98
[2023-02-28] MEDS: THIAMINE HCL 100MG TABLET GT SCH (13:58)
[2023-02-28] MEDS: AMLODIPINE 5MG TABLET PEG SCH ×2 (13:58→20:52)
[2023-02-28] MEDS: METOPROLOL TARTRATE 25MG TABLET GT SCH ×2 (13:59→20:53)
[2023-02-28] MEDS: FOLIC ACID 1MG TABLET PO SCH (14:00)
[2023-02-28] MEDS: CHOLECALCIFEROL (D3) 1000 UNIT TABLET PO SCH (14:00)
[2023-02-28] MEDS: ASPIRIN 81MG TABLET PO SCH (14:01)
[2023-02-28] MEDS: NICOTINE 14MG PATCH TD SCH (14:02)
[2023-02-28] MEDS: DORZOLAM/TIMOLOL 2.23/0.68% OPHTH DROPS 10ML LEFTEYE SCH ×2 (14:03→20:53)
[2023-02-28 16:46] LABS: BASOPHILS % 0.5 % (0.0-2.0); CHLORIDE 101 mEq/L (98-107); EOSINOPHILS % 5.2 % (0.0-5.0); HEMATOCRIT. 29.8 % (36.0-48.0); HEMOGLOBIN. 9.7 g/dL (12.0-16.0); INDEX HEMOLYSI 1 (1-3); INDEX ICTERIC 1 (1-4); INDEX LIPEMIC 1 (1-3); LYMPHOCYTES % 11.4 % (20.0-50.0); MEAN CORPUSCULAR HEMOGLOBIN 29.7 pg (28.0-32.0); MEAN CORPUSCULAR HGB CONC 32.5 g/dL (31.0-37.0); MEAN CORPUSCULAR VOLUME 91.3 fL (81.0-99.0); MEAN PLATELET VOLUME 9.3 fl (7.4-10.4); MONOCYTES % 12.5 % (2.0-8.0); NEUTROPHILS % 70.4 % (40.0-76.0); PLATELET 604 x1000/uL (130-400); POTASSIUM 4.1 mEq/L (3.5-5.1); RED BLOOD CELL COUNT 3.26 mill/uL (4.2-5.4); RED CELL DISTRIBUTION WIDTH 14.7 % (11.6-14.6); SODIUM 136 mEq/L (136-145); WHITE BLOOD COUNT 9.1 x1000/uL (4.5-11.0)
[2023-02-28 16:54] LABS: CALCIUM 9.6 mg/dL (8.5-10.1); CARBON DIOXIDE 25 mEq/L (21-32); CREATININE 0.8 mg/dL (0.6-1.3); GLUCOSE 126 mg/dL (70-105); UREA NITROGEN BLOOD 15 mg/dL (7-21)
[2023-02-28] MEDS: ENOXAPARIN 40MG/0.4ML SYR SUBCUT SCH (16:54)
[2023-02-28 17:24] VITALS: BP 121/74; PULSE 105; RESP 18; TEMP 98
[2023-02-28 20:00] VITALS: BP 114/67; PULSE 107; RESP 18; TEMP 97.8
[2023-02-28] MEDS: ATORVASTATIN CALCIUM 40MG TABLET PO SCH (20:52)
[2023-02-28] MEDS: ACETAMINOPHEN 650MG/20.3ML UDC PO PRN (20:52)
[2023-02-28] MEDS: RISPERIDONE 1MG TABLET PO SCH (20:52)
[2023-02-28] MEDS: LATANOPROST 0.005% OPHTH DROPS 2.5ML LEFTEYE SCH (21:00)
[2023-03-01] VITALS: BP 104/59; PULSE 102; RESP 16; TEMP 98.1
[2023-03-01 04:00] VITALS: BP 91/59; PULSE 116; RESP 18; TEMP 98.6
[2023-03-01] MEDS: BRIMONIDINE 0.2% OPHTH DROPS 5ML LEFTEYE SCH ×3 (05:52→22:00)
[2023-03-01] MEDS: PANTOPRAZOLE SODIUM 40 MG/VIAL IV SCH ×2 (05:52→18:43)
[2023-03-01] MEDS: AMLODIPINE 5MG TABLET PEG SCH ×2 (09:00→21:03)
[2023-03-01] MEDS: METOPROLOL TARTRATE 25MG TABLET GT SCH ×2 (09:00→21:02)
[2023-03-01] MEDS: DOCUSATE SODIUM SUGAR FREE 100MG/10ML UDC GT SCH (10:01)
[2023-03-01] MEDS: CHOLECALCIFEROL (D3) 1000 UNIT TABLET PO SCH (10:02)
[2023-03-01] MEDS: THIAMINE HCL 100MG TABLET GT SCH (10:03)
[2023-03-01] MEDS: ASPIRIN 81MG TABLET PO SCH (10:05)
[2023-03-01] MEDS: MAGNESIUM/ALUMINUM HYDROXIDE/SIMETHICONE 30ML UDC PO PRN (10:05)
[2023-03-01] MEDS: NICOTINE 14MG PATCH TD SCH (10:05)
[2023-03-01] MEDS: POTASSIUM CHLORIDE INJ 10 MEQ in DEXT 5%/0.9% NACL 1,000 ML IV SCH (11:45)
[2023-03-01] MEDS: SODIUM CHLORIDE 0.9% INJ 3ML FLUSH IVF SCH ×2 (14:00→22:00)
[2023-03-01] MEDS: FOLIC ACID 1MG TABLET PO SCH (16:29)
[2023-03-01] MEDS: ENOXAPARIN 40MG/0.4ML SYR SUBCUT SCH (16:29)
[2023-03-01] MEDS: DORZOLAM/TIMOLOL 2.23/0.68% OPHTH DROPS 10ML LEFTEYE SCH ×2 (16:31→20:53)
[2023-03-01] MEDS: ACETAMINOPHEN 650MG/20.3ML UDC PO PRN (16:32)
[2023-03-01 20:00] VITALS: BP 115/52; PULSE 106; RESP 18; TEMP 98.9
[2023-03-01] MEDS: RISPERIDONE 1MG TABLET PO SCH (20:53)
[2023-03-01] MEDS: LATANOPROST 0.005% OPHTH DROPS 2.5ML LEFTEYE SCH (20:53)
[2023-03-01] MEDS: ATORVASTATIN CALCIUM 40MG TABLET PO SCH (20:59)
[2023-03-02] VITALS (9 sets, daily range): BP systolic 83–124; BP diastolic 49–74; PULSE 19–118; RESP 15–36; TEMP 96.6–100.4; O2SAT 96
[2023-03-02] MEDS: PANTOPRAZOLE SODIUM 40 MG/VIAL IV SCH (05:38)
[2023-03-02] MEDS: SODIUM CHLORIDE 0.9% INJ 3ML FLUSH IVF SCH ×3 (05:41→22:00)
[2023-03-02] MEDS: BRIMONIDINE 0.2% OPHTH DROPS 5ML LEFTEYE SCH ×3 (06:00→22:00)
[2023-03-02] MEDS: DORZOLAM/TIMOLOL 2.23/0.68% OPHTH DROPS 10ML LEFTEYE SCH ×2 (09:00→21:00)
[2023-03-02] MEDS: POTASSIUM CHLORIDE INJ 10 MEQ in DEXT 5%/0.9% NACL 1,000 ML IV SCH (11:51)
[2023-03-02] MEDS: IPRATROPIUM/ALBUTEROL 0.5-3(2.5)MG/3ML NEB HHN SCH ×3 (12:25→21:11)
[2023-03-02] MEDS ORDERED: FUROSEMIDE 40MG/4ML VIAL IVP NR (13:45)
[2023-03-02 14:30] LABS: BG BASE EXCESS -1.1 mmol/L (-2.0-2.0); BG CARBOXYHEMOGLOBIN 0.3 % (0.5-1.5); BG DEOXYHEMOGLOBIN 1.2 % (0.0-5.0); BG FRACTION INSPIRED OXYGEN 100; BG HCO3 ACT 22.4 mmol/L (22.0-26.0); BG METHEMOGLOBIN 0.4 % (0.0-1.5); BG OXYGEN SATURATION 98.8 % (92.0-98.5); BG OXYHEMOGLOBIN 98.1 % (94.0-97.0); BG PO2 158.7 mmHg (75.0-100.0); BG SAMPLE SITE RIGHT RADIAL; BG TOTAL HEMOGLOBIN 10.1 g/dL (12.0-18.0); BG VENT MODE MASK - NRB
[2023-03-02] MEDS ORDERED: IPRATROPIUM/ALBUTEROL 0.5-3(2.5)MG/3ML NEB HHN PRN (15:15)
[2023-03-02] MEDS: ACETAMINOPHEN 650MG/20.3ML UDC PO PRN (18:47)
[2023-03-02] MEDS: DOCUSATE SODIUM SUGAR FREE 100MG/10ML UDC GT SCH (18:47)
[2023-03-02] MEDS: MAGNESIUM/ALUMINUM HYDROXIDE/SIMETHICONE 30ML UDC PO PRN (18:47)
[2023-03-02] MEDS: ASPIRIN 81MG TABLET PO SCH (18:48)
[2023-03-02] MEDS: AMLODIPINE 5MG TABLET PEG SCH ×2 (18:48→21:00)
[2023-03-02] MEDS: CHOLECALCIFEROL (D3) 1000 UNIT TABLET PO SCH (18:48)
[2023-03-02] MEDS: METOPROLOL TARTRATE 25MG TABLET GT SCH ×2 (18:48→21:00)
[2023-03-02] MEDS: THIAMINE HCL 100MG TABLET GT SCH (18:49)
[2023-03-02] MEDS: ENOXAPARIN 40MG/0.4ML SYR SUBCUT SCH (18:50)
[2023-03-02] MEDS: LATANOPROST 0.005% OPHTH DROPS 2.5ML LEFTEYE SCH (21:00)
[2023-03-02] MEDS: FOLIC ACID 1MG TABLET PO SCH (21:01)
[2023-03-02] MEDS: BUDESONIDE 0.5MG/2ML NEB HHN SCH (21:12)
[2023-03-02] MEDS: RISPERIDONE 1MG TABLET PO SCH (21:45)
[2023-03-02] MEDS: ATORVASTATIN CALCIUM 40MG TABLET PO SCH (21:45)
[2023-03-02] MEDS: FAMOTIDINE 20MG TABLET PEG SCH (21:45)
[2023-03-03] VITALS (11 sets, daily range): BP systolic 74–108; BP diastolic 44–58; PULSE 96–120; RESP 17–30; TEMP 97.8–100.2; O2SAT 94–95
[2023-03-03] MEDS: IPRATROPIUM/ALBUTEROL 0.5-3(2.5)MG/3ML NEB HHN SCH ×4 (01:24→20:25)
[2023-03-03] MEDS ORDERED: SODIUM CHLORIDE 0.9% 500 ML IV ONE (04:15)
[2023-03-03] MEDS ORDERED: NOREPINEPHRINE 8MG/250ML PMX 250 ML IV PRN (04:15)
[2023-03-03] MEDS: SODIUM CHLORIDE 0.9% INJ 3ML FLUSH IVF SCH ×3 (06:00→22:06)
[2023-03-03] MEDS: BRIMONIDINE 0.2% OPHTH DROPS 5ML LEFTEYE SCH ×3 (06:00→22:07)
[2023-03-03] MEDS: THIAMINE HCL 100MG TABLET GT SCH (08:42)
[2023-03-03] MEDS: CHOLECALCIFEROL (D3) 1000 UNIT TABLET PO SCH (08:43)
[2023-03-03] MEDS: FOLIC ACID 1MG TABLET PO SCH (08:43)
[2023-03-03] MEDS: ASPIRIN 81MG TABLET PO SCH (08:44)
[2023-03-03] MEDS: DOCUSATE SODIUM SUGAR FREE 100MG/10ML UDC GT SCH (08:44)
[2023-03-03 08:45] LABS: BG BASE EXCESS -0.9 mmol/L (-2.0-2.0); BG DEOXYHEMOGLOBIN 9.6 % (0.0-5.0); BG FRACTION INSPIRED OXYGEN 24; BG HCO3 ACT 22.7 mmol/L (22.0-26.0); BG METHEMOGLOBIN 0.6 % (0.0-1.5); BG OXYGEN SATURATION 90.3 % (92.0-98.5); BG OXYHEMOGLOBIN 89.8 % (94.0-97.0); BG PH 7.455 (7.350-7.450); BG PO2 59.7 mmHg (75.0-100.0); BG SAMPLE SITE RIGHT RADIAL; BG TOTAL HEMOGLOBIN 8.3 g/dL (12.0-18.0); BG VENT MODE MASK - VENTI
[2023-03-03] MEDS: NICOTINE 7MG PATCH TD SCH (08:45)
[2023-03-03] MEDS: METOPROLOL TARTRATE 25MG TABLET GT SCH ×2 (08:45→21:00)
[2023-03-03] MEDS: AMLODIPINE 5MG TABLET PEG SCH ×2 (08:45→21:00)
[2023-03-03] MEDS: DORZOLAM/TIMOLOL 2.23/0.68% OPHTH DROPS 10ML LEFTEYE SCH ×2 (09:00→21:00)
[2023-03-03 10:19] LABS: BASOPHILS % 0.2 % (0.0-2.0); EOSINOPHILS % 3.1 % (0.0-5.0); HEMATOCRIT. 25.7 % (36.0-48.0); HEMOGLOBIN. 8.3 g/dL (12.0-16.0); MEAN CORPUSCULAR HEMOGLOBIN 29.6 pg (28.0-32.0); MEAN CORPUSCULAR HGB CONC 32.1 g/dL (31.0-37.0); MEAN PLATELET VOLUME 9.4 fl (7.4-10.4); MONOCYTES % 9.7 % (2.0-8.0); PLATELET 590 x1000/uL (130-400); RED BLOOD CELL COUNT 2.79 mill/uL (4.2-5.4); RED CELL DISTRIBUTION WIDTH 15.1 % (11.6-14.6); WHITE BLOOD COUNT 13.8 x1000/uL (4.5-11.0)
[2023-03-03 10:52] LABS: CALCIUM 9.1 mg/dL (8.5-10.1); CHLORIDE 113 mEq/L (98-107); INDEX HEMOLYSI 1 (1-3); INDEX ICTERIC 1 (1-4); INDEX LIPEMIC 1 (1-3); POTASSIUM 4.3 mEq/L (3.5-5.1); SODIUM 142 mEq/L (136-145)
[2023-03-03 11:00] LABS: CARBON DIOXIDE 25 mEq/L (21-32); CREATININE 1.7 mg/dL (0.6-1.3); GLUCOSE 123 mg/dL (70-105); PHOSPHORUS 4.8 mg/dL (2.5-4.9); UREA NITROGEN BLOOD 43 mg/dL (7-21)
[2023-03-03 11:04] LABS: TROPONIN I HIGH SENSITIVITY 153 ng/L (<54)
[2023-03-03] MEDS: SODIUM CHLORIDE 0.9% 1,000 ML IV SCH (12:30)
[2023-03-03] MEDS: BUDESONIDE 0.5MG/2ML NEB HHN SCH ×2 (15:02→20:25)
[2023-03-03] MEDS: ENOXAPARIN 40MG/0.4ML SYR SUBCUT SCH (15:21)
[2023-03-03] MEDS ORDERED: CEFTRIAXONE 1GM PREMIX 50 ML IV SCH (15:45)
[2023-03-03] MEDS ORDERED: CEFTRIAXONE 1,000 MG in DEXTROSE 5% WATER 50 ML IV SCH (17:30)
[2023-03-03] MEDS: FAMOTIDINE 20MG TABLET PEG SCH (21:00)
[2023-03-03] MEDS: ATORVASTATIN CALCIUM 40MG TABLET PO SCH (21:00)
[2023-03-03] MEDS: LATANOPROST 0.005% OPHTH DROPS 2.5ML LEFTEYE SCH (21:00)
[2023-03-03] MEDS: RISPERIDONE 1MG TABLET PO SCH (21:00)
[2023-03-04] VITALS (18 sets, daily range): BP systolic 76–115; BP diastolic 47–66; PULSE 92–125; RESP 18–40; TEMP 97.4–102.6; O2SAT 99–100
[2023-03-04] MEDS: SODIUM CHLORIDE 0.9% 1,000 ML IV SCH ×2 (01:50→14:37)
[2023-03-04] MEDS: IPRATROPIUM/ALBUTEROL 0.5-3(2.5)MG/3ML NEB HHN SCH ×4 (02:01→19:59)
[2023-03-04] MEDS: BRIMONIDINE 0.2% OPHTH DROPS 5ML LEFTEYE SCH (06:00)
[2023-03-04] MEDS: SODIUM CHLORIDE 0.9% INJ 3ML FLUSH IVF SCH ×3 (06:00→22:00)
[2023-03-04 06:52] LABS: BASOPHILS % 0.3 % (0.0-2.0); EOSINOPHILS % 2.5 % (0.0-5.0); HEMOGLOBIN. 7.1 g/dL (12.0-16.0); MEAN CORPUSCULAR HEMOGLOBIN 29.5 pg (28.0-32.0); MEAN CORPUSCULAR HGB CONC 32.4 g/dL (31.0-37.0); MEAN CORPUSCULAR VOLUME 91.1 fL (81.0-99.0); MEAN PLATELET VOLUME 9.1 fl (7.4-10.4); MONOCYTES % 8.5 % (2.0-8.0); NEUTROPHILS % 80.7 % (40.0-76.0); PLATELET 589 x1000/uL (130-400); RED BLOOD CELL COUNT 2.41 mill/uL (4.2-5.4); RED CELL DISTRIBUTION WIDTH 15.3 % (11.6-14.6); WHITE BLOOD COUNT 14.5 x1000/uL (4.5-11.0)
[2023-03-04 07:59] LABS: POTASSIUM 4.4 mEq/L (3.5-5.1)
[2023-03-04 08:05] LABS: CALCIUM 8.5 mg/dL (8.5-10.1); CREATININE 1.5 mg/dL (0.6-1.3)
[2023-03-04] MEDS: DOCUSATE SODIUM SUGAR FREE 100MG/10ML UDC GT SCH (08:30)
[2023-03-04] MEDS: THIAMINE HCL 100MG TABLET GT SCH (08:31)
[2023-03-04] MEDS: NICOTINE 7MG PATCH TD SCH (08:31)
[2023-03-04] MEDS: ASPIRIN 81MG TABLET PO SCH (08:31)
[2023-03-04] MEDS: FOLIC ACID 1MG TABLET PO SCH (08:31)
[2023-03-04] MEDS: AMLODIPINE 5MG TABLET PEG SCH ×2 (08:31→21:00)
[2023-03-04] MEDS: CHOLECALCIFEROL (D3) 1000 UNIT TABLET PO SCH (08:31)
[2023-03-04] MEDS: DORZOLAM/TIMOLOL 2.23/0.68% OPHTH DROPS 10ML LEFTEYE SCH (08:32)
[2023-03-04] MEDS: METOPROLOL TARTRATE 25MG TABLET GT SCH ×2 (08:32→21:00)
[2023-03-04] MEDS: BUDESONIDE 0.5MG/2ML NEB HHN SCH ×2 (09:41→19:59)
[2023-03-04 11:33] LABS: BASOPHILS % 0.3 % (0.0-2.0); DIFFERENTIAL COMMENT 0; EOSINOPHILS % 2.1 % (0.0-5.0); HEMATOCRIT. 22.7 % (36.0-48.0); LYMPHOCYTES % 8.8 % (20.0-50.0); MEAN CORPUSCULAR HEMOGLOBIN 28.5 pg (28.0-32.0); MEAN CORPUSCULAR HGB CONC 30.1 g/dL (31.0-37.0); MEAN CORPUSCULAR VOLUME 94.5 fL (81.0-99.0); MEAN PLATELET VOLUME 9.2 fl (7.4-10.4); MONOCYTES % 12.8 % (2.0-8.0); PLATELET 572 x1000/uL (130-400); RED CELL DISTRIBUTION WIDTH 15.9 % (11.6-14.6); WHITE BLOOD COUNT 14.4 x1000/uL (4.5-11.0)
[2023-03-04 11:59] LABS: HEMOGLOBIN. 6.8 g/dL (12.0-16.0)
[2023-03-04] MEDS ORDERED: SODIUM CHLORIDE 0.9% 500 ML IV NR (12:15)
[2023-03-04] MEDS ORDERED: SODIUM CHLORIDE 0.9% 500 ML IV ONE (12:15)
[2023-03-04 12:32] LABS: BG BASE EXCESS -2.5 mmol/L (-2.0-2.0); BG CARBOXYHEMOGLOBIN 0.6 % (0.5-1.5); BG FRACTION INSPIRED OXYGEN 40; BG HCO3 ACT 21.1 mmol/L (22.0-26.0); BG METHEMOGLOBIN 0.5 % (0.0-1.5); BG OXYGEN SATURATION 93.9 % (92.0-98.5); BG OXYHEMOGLOBIN 92.9 % (94.0-97.0); BG PCO2 30.7 mmHg (35.0-45.0); BG PH 7.455 (7.350-7.450); BG SAMPLE SITE RIGHT RADIAL; BG TOTAL HEMOGLOBIN 6.9 g/dL (12.0-18.0); BG VENT MODE MASK - VENTI
[2023-03-04 13:25] LABS: CLARITY URINE TURBID (CLEAR); COLOR URINE DARK YELLOW (YELLOW); GLUCOSE URINE NEGATIVE (NEGATIVE); KETONES URINE NEGATIVE (NEGATIVE); LEUKOCYTE ESTERASE URINE 3+ (NEGATIVE); NITRITE URINE POSITIVE (NEGATIVE); OCCULT BLOOD URINE 2+ (NEGATIVE); PH URINE 5.5 (4.5-8.0); PROTEIN URINE 2+ (NEGATIVE); SPECIFIC GRAVITY URINE 1.014 (1.005-1.030)
[2023-03-04 14:16] LABS: BACTERIA URINE 4+; SQUAMOUS EPITHELIAL CELL URINE NONE SEEN /lpf (RARE/1+); WBC URINE TNTC /hpf (0-2)
[2023-03-04 14:18] LABS: RBC URINE 0-2 /hpf (0-2)
[2023-03-04] MEDS: CEFEPIME 2,000 MG in DEXT 5% WATER 100 ML IV SCH ×2 (15:25→21:10)
[2023-03-04] MEDS ORDERED: VANCOMYCIN 1G PREMIX 200 ML IV NR (17:00)
[2023-03-04] MEDS ORDERED: LACTULOSE 20G/30ML UDC GT NR (18:45)
[2023-03-04] MEDS: RISPERIDONE 1MG TABLET PO SCH (21:00)
[2023-03-04] MEDS: ATORVASTATIN CALCIUM 40MG TABLET PO SCH (21:07)
[2023-03-04] MEDS: FAMOTIDINE 20MG TABLET PEG SCH (21:08)
[2023-03-04] MEDS: METRONIDAZOLE 500 MG PREMIX 100 ML IV SCH ×2 (21:17→21:36)
[2023-03-05] VITALS (16 sets, daily range): BP systolic 84–104; BP diastolic 49–69; PULSE 110–126; RESP 19–37; TEMP 98.9–100.4; O2SAT 97–99
[2023-03-05] MEDS: ACETAMINOPHEN 650MG/20.3ML UDC PO PRN ×2 (00:14→17:32)
[2023-03-05] MEDS: IPRATROPIUM/ALBUTEROL 0.5-3(2.5)MG/3ML NEB HHN SCH ×4 (02:06→21:02)
[2023-03-05] MEDS: CEFEPIME 2,000 MG in DEXT 5% WATER 100 ML IV SCH ×2 (03:03→13:11)
[2023-03-05] MEDS: LATANOPROST 0.005% OPHTH DROPS 2.5ML LEFTEYE SCH ×2 (03:42→21:30)
[2023-03-05] MEDS: DORZOLAM/TIMOLOL 2.23/0.68% OPHTH DROPS 10ML LEFTEYE SCH ×3 (03:42→21:30)
[2023-03-05] MEDS: SODIUM CHLORIDE 0.9% 1,000 ML IV SCH ×2 (04:52→16:44)
[2023-03-05 05:32] LABS: HEMATOCRIT. 23.3 % (36.0-48.0); HEMOGLOBIN. 7.4 g/dL (12.0-16.0); MEAN CORPUSCULAR HEMOGLOBIN 29.2 pg (28.0-32.0); MEAN CORPUSCULAR HGB CONC 31.9 g/dL (31.0-37.0); MEAN CORPUSCULAR VOLUME 91.6 fL (81.0-99.0); MEAN PLATELET VOLUME 9.4 fl (7.4-10.4); PLATELET 515 x1000/uL (130-400); RED BLOOD CELL COUNT 2.54 mill/uL (4.2-5.4); RED CELL DISTRIBUTION WIDTH 15.6 % (11.6-14.6); WHITE BLOOD COUNT 14.9 x1000/uL (4.5-11.0)
[2023-03-05 05:36] LABS: DIFFERENTIAL COMMENT 1
[2023-03-05] MEDS: SODIUM CHLORIDE 0.9% INJ 3ML FLUSH IVF SCH ×3 (05:43→21:42)
[2023-03-05] MEDS: METRONIDAZOLE 500 MG PREMIX 100 ML IV SCH ×3 (05:43→21:33)
[2023-03-05] MEDS: BRIMONIDINE 0.2% OPHTH DROPS 5ML LEFTEYE SCH ×3 (05:43→21:30)
[2023-03-05 05:44] LABS: INR 1.1; PROTHROMBIN TIME 11.7 sec (9.6-11.0)
[2023-03-05 05:54] LABS: POTASSIUM 4.1 mEq/L (3.5-5.1)
[2023-03-05 06:10] LABS: CREATININE 1.6 mg/dL (0.6-1.3); THYROID STIMULATING HORMONE 1.2 uIU/mL (0.36-3.74)
[2023-03-05 08:07] LABS: FERRITIN 1957 ng/mL (10-291)
[2023-03-05] MEDS: THIAMINE HCL 100MG TABLET GT SCH (08:07)
[2023-03-05] MEDS: DOCUSATE SODIUM SUGAR FREE 100MG/10ML UDC GT SCH (08:07)
[2023-03-05] MEDS: NICOTINE 7MG PATCH TD SCH (08:07)
[2023-03-05] MEDS: FOLIC ACID 1MG TABLET PO SCH (08:08)
[2023-03-05] MEDS: CHOLECALCIFEROL (D3) 1000 UNIT TABLET PO SCH (08:08)
[2023-03-05] MEDS: METOPROLOL TARTRATE 25MG TABLET GT SCH ×2 (08:08→20:46)
[2023-03-05] MEDS: ASPIRIN 81MG TABLET PO SCH (08:08)
[2023-03-05] MEDS: AMLODIPINE 5MG TABLET PEG SCH ×2 (08:09→21:00)
[2023-03-05 09:33] LABS: ANISOCYTOSIS 1+; PLATELET ESTIMATE INCREASED
[2023-03-05] MEDS: BUDESONIDE 0.5MG/2ML NEB HHN SCH (11:17)
[2023-03-05 12:47] LABS: INDEX HEMOLYSI 1 (1-3)
[2023-03-05] MEDS: LACTULOSE 20G/30ML UDC PEG SCH ×2 (13:12→21:42)
[2023-03-05 13:31] LABS: VITAMIN B12 SERUM > 2000.0 pg/mL (211-911)
[2023-03-05] MEDS ORDERED: METOCLOPRAMIDE HCL 10MG/2ML VIAL IV SCH (16:15)
[2023-03-05] MEDS ORDERED: BISACODYL 10MG SUPP PR SCH (16:15)
[2023-03-05] MEDS ORDERED: LACTULOSE 20G/30ML UDC GT SCH (16:15)
[2023-03-05] MEDS: VANCOMYCIN 750MG PREMIX 150 ML IV SCH (16:44)
[2023-03-05] MEDS: SODIUM CHLORIDE 0.9% 500 ML IV SCH ×2 (17:32→17:33)
[2023-03-05] MEDS ORDERED: SODIUM CHLORIDE 0.9% 500 ML IV ONE (17:45)
[2023-03-05] MEDS: FAMOTIDINE 20MG TABLET PEG SCH (21:32)
[2023-03-05] MEDS: ATORVASTATIN CALCIUM 40MG TABLET PO SCH (21:32)
[2023-03-05] MEDS: RISPERIDONE 1MG TABLET PO SCH (21:33)
[2023-03-06] VITALS (16 sets, daily range): BP systolic 84–114; BP diastolic 54–78; PULSE 102–126; RESP 11–31; TEMP 98–98.8; O2SAT 99–100
[2023-03-06] MEDS: CEFEPIME 2,000 MG in DEXT 5% WATER 100 ML IV SCH ×2 (00:56→13:05)
[2023-03-06] MEDS: SODIUM CHLORIDE 0.9% 1,000 ML IV SCH ×3 (00:57→17:10)
[2023-03-06] MEDS: IPRATROPIUM/ALBUTEROL 0.5-3(2.5)MG/3ML NEB HHN SCH ×4 (02:46→22:16)
[2023-03-06 05:49] LABS: BASOPHILS % 0.3 % (0.0-2.0); EOSINOPHILS % 3.2 % (0.0-5.0); HEMATOCRIT. 23.6 % (36.0-48.0); HEMOGLOBIN. 7.6 g/dL (12.0-16.0); LYMPHOCYTES % 7.2 % (20.0-50.0); MEAN CORPUSCULAR HGB CONC 32.1 g/dL (31.0-37.0); MEAN CORPUSCULAR VOLUME 93.5 fL (81.0-99.0); MEAN PLATELET VOLUME 9.6 fl (7.4-10.4); MONOCYTES % 6.5 % (2.0-8.0); NEUTROPHILS % 82.8 % (40.0-76.0); PLATELET 503 x1000/uL (130-400); RED BLOOD CELL COUNT 2.53 mill/uL (4.2-5.4); RED CELL DISTRIBUTION WIDTH 15.8 % (11.6-14.6); WHITE BLOOD COUNT 12.6 x1000/uL (4.5-11.0)
[2023-03-06] MEDS: LACTULOSE 20G/30ML UDC PEG SCH ×3 (06:06→22:13)
[2023-03-06] MEDS: METRONIDAZOLE 500 MG PREMIX 100 ML IV SCH ×3 (06:06→22:13)
[2023-03-06] MEDS: BRIMONIDINE 0.2% OPHTH DROPS 5ML LEFTEYE SCH ×3 (06:18→22:11)
[2023-03-06] MEDS: SODIUM CHLORIDE 0.9% INJ 3ML FLUSH IVF SCH ×3 (06:37→22:13)
[2023-03-06 07:54] LABS: CALCIUM 8.7 mg/dL (8.5-10.1); CREATININE 1.2 mg/dL (0.6-1.3)
[2023-03-06] MEDS: NICOTINE 7MG PATCH TD SCH (08:05)
[2023-03-06 08:06] LABS: POTASSIUM 4.3 mEq/L (3.5-5.1)
[2023-03-06] MEDS: METOPROLOL TARTRATE 25MG TABLET GT SCH ×2 (08:06→21:00)
[2023-03-06] MEDS: DOCUSATE SODIUM SUGAR FREE 100MG/10ML UDC GT SCH (08:06)
[2023-03-06] MEDS: FOLIC ACID 1MG TABLET PO SCH (08:06)
[2023-03-06] MEDS: THIAMINE HCL 100MG TABLET GT SCH (08:06)
[2023-03-06] MEDS: CHOLECALCIFEROL (D3) 1000 UNIT TABLET PO SCH (08:06)
[2023-03-06] MEDS: ASPIRIN 81MG TABLET PO SCH (08:06)
[2023-03-06] MEDS: AMLODIPINE 5MG TABLET PEG SCH ×2 (08:07→21:00)
[2023-03-06] MEDS: DORZOLAM/TIMOLOL 2.23/0.68% OPHTH DROPS 10ML LEFTEYE SCH ×2 (08:08→22:11)
[2023-03-06 13:30] LABS: BG BASE EXCESS -5.2 mmol/L (-2.0-2.0); BG CARBOXYHEMOGLOBIN 0.1 % (0.5-1.5); BG DEOXYHEMOGLOBIN 6.1 % (0.0-5.0); BG HCO3 ACT 18.6 mmol/L (22.0-26.0); BG METHEMOGLOBIN 0.5 % (0.0-1.5); BG OXYGEN SATURATION 93.9 % (92.0-98.5); BG OXYHEMOGLOBIN 93.3 % (94.0-97.0); BG PCO2 29.3 mmHg (35.0-45.0); BG PO2 73.6 mmHg (75.0-100.0); BG SAMPLE SITE RIGHT RADIAL; BG TOTAL HEMOGLOBIN 7.7 g/dL (12.0-18.0); BG VENT MODE NASAL CANNULA
[2023-03-06] MEDS ORDERED: METOCLOPRAMIDE HCL 10MG/2ML VIAL IV NR (16:00)
[2023-03-06] MEDS ORDERED: LACTULOSE 20G/30ML UDC PO NR (16:00)
[2023-03-06] MEDS: VANCOMYCIN 750MG PREMIX 150 ML IV SCH (16:19)
[2023-03-06] MEDS: LATANOPROST 0.005% OPHTH DROPS 2.5ML LEFTEYE SCH (22:11)
[2023-03-06] MEDS: ATORVASTATIN CALCIUM 40MG TABLET PO SCH (22:12)
[2023-03-06] MEDS: FAMOTIDINE 20MG TABLET PEG SCH (22:12)
[2023-03-06] MEDS: RISPERIDONE 1MG TABLET PO SCH (22:12)
[2023-03-07] VITALS (20 sets, daily range): BP systolic 76–107; BP diastolic 51–76; PULSE 115–130; RESP 20–39; TEMP 98.7–100; O2SAT 99–100
[2023-03-07] MEDS: CEFEPIME 2,000 MG in DEXT 5% WATER 100 ML IV SCH ×2 (01:04→14:57)
[2023-03-07] MEDS: SODIUM CHLORIDE 0.9% 1,000 ML IV SCH (01:05)
[2023-03-07] MEDS: SODIUM CHLORIDE 0.9% INJ 3ML FLUSH IVF SCH ×3 (06:21→22:00)
[2023-03-07] MEDS: LACTULOSE 20G/30ML UDC PEG SCH ×3 (06:21→23:31)
[2023-03-07] MEDS: BRIMONIDINE 0.2% OPHTH DROPS 5ML LEFTEYE SCH ×3 (06:21→23:35)
[2023-03-07] MEDS: METRONIDAZOLE 500 MG PREMIX 100 ML IV SCH ×3 (06:22→23:44)
[2023-03-07 07:53] LABS: BASOPHILS % 0.2 % (0.0-2.0); DIFFERENTIAL COMMENT 0; EOSINOPHILS % 3.3 % (0.0-5.0); HEMATOCRIT. 21.3 % (36.0-48.0); LYMPHOCYTES % 10.4 % (20.0-50.0); MEAN CORPUSCULAR HEMOGLOBIN 29.5 pg (28.0-32.0); MEAN CORPUSCULAR HGB CONC 31.9 g/dL (31.0-37.0); MEAN CORPUSCULAR VOLUME 92.5 fL (81.0-99.0); MEAN PLATELET VOLUME 9.5 fl (7.4-10.4); MONOCYTES % 8.2 % (2.0-8.0); NEUTROPHILS % 77.9 % (40.0-76.0); PLATELET 461 x1000/uL (130-400); RED CELL DISTRIBUTION WIDTH 15.7 % (11.6-14.6); WHITE BLOOD COUNT 12.3 x1000/uL (4.5-11.0)
[2023-03-07 08:22] LABS: CHLORIDE 127 mEq/L (98-107); INDEX HEMOLYSI 1 (1-3); INDEX ICTERIC 1 (1-4); INDEX LIPEMIC 1 (1-3); POTASSIUM 3.8 mEq/L (3.5-5.1); SODIUM 152 mEq/L (136-145)
[2023-03-07 08:39] LABS: CALCIUM 8.7 mg/dL (8.5-10.1); CARBON DIOXIDE 17 mEq/L (21-32); CREATININE 1.1 mg/dL (0.6-1.3); GLUCOSE 110 mg/dL (70-105); UREA NITROGEN BLOOD 29 mg/dL (7-21)
[2023-03-07] MEDS: IPRATROPIUM/ALBUTEROL 0.5-3(2.5)MG/3ML NEB HHN SCH (08:44)
[2023-03-07] MEDS ORDERED: IPRATROPIUM BROMIDE (0.02%) 0.5MG/2.5ML NEB HHN ONE (09:00)
[2023-03-07] MEDS: AMLODIPINE 5MG TABLET PEG SCH ×2 (09:00→21:00)
[2023-03-07] MEDS ORDERED: IPRATROPIUM BROMIDE (0.02%) 0.5MG/2.5ML NEB HHN NR (09:00)
[2023-03-07] MEDS: ASPIRIN 81MG TABLET PO SCH (09:47)
[2023-03-07] MEDS: FOLIC ACID 1MG TABLET PO SCH (09:47)
[2023-03-07] MEDS: DOCUSATE SODIUM SUGAR FREE 100MG/10ML UDC GT SCH (09:47)
[2023-03-07] MEDS: CHOLECALCIFEROL (D3) 1000 UNIT TABLET PO SCH (09:48)
[2023-03-07] MEDS: NICOTINE 7MG PATCH TD SCH (09:48)
[2023-03-07] MEDS: THIAMINE HCL 100MG TABLET GT SCH (09:48)
[2023-03-07 09:52] LABS: HEMOGLOBIN. 6.8 g/dL (12.0-16.0)
[2023-03-07] MEDS: METOPROLOL TARTRATE 25MG TABLET GT SCH ×2 (10:08→21:00)
[2023-03-07] MEDS: DORZOLAM/TIMOLOL 2.23/0.68% OPHTH DROPS 10ML LEFTEYE SCH ×2 (10:09→23:34)
[2023-03-07 11:01] LABS: BG CARBOXYHEMOGLOBIN 0.9 % (0.5-1.5); BG DEOXYHEMOGLOBIN 5.7 % (0.0-5.0); BG FRACTION INSPIRED OXYGEN 32; BG HCO3 ACT 18.3 mmol/L (22.0-26.0); BG METHEMOGLOBIN 0.6 % (0.0-1.5); BG OXYGEN SATURATION 94.2 % (92.0-98.5); BG OXYHEMOGLOBIN 92.8 % (94.0-97.0); BG PCO2 30.5 mmHg (35.0-45.0); BG PH 7.396 (7.350-7.450); BG PO2 70.9 mmHg (75.0-100.0); BG SAMPLE SITE RIGHT RADIAL; BG TOTAL HEMOGLOBIN 6.4 g/dL (12.0-18.0); BG VENT MODE NASAL CANNULA
[2023-03-07] MEDS: POTASSIUM CHLORIDE INJ 40 MEQ in DEXTROSE 5% WATER 1,000 ML IV SCH (12:40)
[2023-03-07] MEDS ORDERED: VANCOMYCIN 750MG PREMIX 150 ML IV SCH (14:00)
[2023-03-07] MEDS: IPRATROPIUM BROMIDE (0.02%) 0.5MG/2.5ML NEB HHN SCH ×2 (15:25→21:08)
[2023-03-07] MEDS: VANCOMYCIN 750MG PREMIX 150 ML IV SCH (20:14)
[2023-03-07] MEDS: ACETAMINOPHEN 650MG/20.3ML UDC PO PRN (20:15)
[2023-03-07] MEDS ORDERED: MAGNESIUM HYDROXIDE 400MG/5ML 30ML UDC PEG NR (21:11)
[2023-03-07] MEDS: ATORVASTATIN CALCIUM 40MG TABLET PO SCH (23:31)
[2023-03-07] MEDS: RISPERIDONE 1MG TABLET PO SCH (23:32)
[2023-03-07] MEDS: FAMOTIDINE 20MG TABLET PEG SCH (23:32)
[2023-03-07] MEDS: LATANOPROST 0.005% OPHTH DROPS 2.5ML LEFTEYE SCH (23:33)
[2023-03-08] VITALS (15 sets, daily range): BP systolic 76–117; BP diastolic 46–64; PULSE 102–123; RESP 22–42; TEMP 97.9–101.8; O2SAT 98–100
[2023-03-08] MEDS: IPRATROPIUM BROMIDE (0.02%) 0.5MG/2.5ML NEB HHN SCH ×4 (01:19→21:04)
[2023-03-08] MEDS: POTASSIUM CHLORIDE INJ 40 MEQ in DEXTROSE 5% WATER 1,000 ML IV SCH ×2 (04:17→22:52)
[2023-03-08] MEDS: CEFEPIME 2,000 MG in DEXT 5% WATER 100 ML IV SCH (04:18)
[2023-03-08] MEDS: SODIUM CHLORIDE 0.9% INJ 3ML FLUSH IVF SCH ×3 (05:48→21:02)
[2023-03-08] MEDS: LACTULOSE 20G/30ML UDC PEG SCH ×3 (06:00→21:02)
[2023-03-08] MEDS: METRONIDAZOLE 500 MG PREMIX 100 ML IV SCH ×3 (06:03→21:58)
[2023-03-08] MEDS: BRIMONIDINE 0.2% OPHTH DROPS 5ML LEFTEYE SCH ×3 (06:04→22:00)
[2023-03-08 06:54] LABS: HEMATOCRIT. 26.4 % (36.0-48.0); HEMOGLOBIN. 8.2 g/dL (12.0-16.0); MEAN CORPUSCULAR HEMOGLOBIN 29.3 pg (28.0-32.0); MEAN CORPUSCULAR VOLUME 94.6 fL (81.0-99.0); MEAN PLATELET VOLUME 10.1 fl (7.4-10.4); PLATELET 441 x1000/uL (130-400); RED BLOOD CELL COUNT 2.79 mill/uL (4.2-5.4); RED CELL DISTRIBUTION WIDTH 16.8 % (11.6-14.6); WHITE BLOOD COUNT 14.8 x1000/uL (4.5-11.0)
[2023-03-08 07:36] LABS: POTASSIUM 4.6 mEq/L (3.5-5.1)
[2023-03-08 07:41] LABS: CALCIUM 9.5 mg/dL (8.5-10.1); CREATININE 1.3 mg/dL (0.6-1.3)
[2023-03-08] MEDS: ACETAMINOPHEN 650MG/20.3ML UDC PO PRN (07:53)
[2023-03-08 07:54] LABS: DIFFERENTIAL COMMENT 1
[2023-03-08] MEDS: METOPROLOL TARTRATE 25MG TABLET GT SCH ×2 (09:00→20:56)
[2023-03-08] MEDS: AMLODIPINE 5MG TABLET PEG SCH ×2 (09:00→20:57)
[2023-03-08] MEDS: NICOTINE 7MG PATCH TD SCH (09:52)
[2023-03-08] MEDS: THIAMINE HCL 100MG TABLET GT SCH (09:52)
[2023-03-08] MEDS: ASPIRIN 81MG TABLET PO SCH (09:52)
[2023-03-08] MEDS: DOCUSATE SODIUM SUGAR FREE 100MG/10ML UDC GT SCH (09:52)
[2023-03-08] MEDS: FOLIC ACID 1MG TABLET PO SCH (09:52)
[2023-03-08] MEDS: CHOLECALCIFEROL (D3) 1000 UNIT TABLET PO SCH (09:52)
[2023-03-08] MEDS: DORZOLAM/TIMOLOL 2.23/0.68% OPHTH DROPS 10ML LEFTEYE SCH ×2 (09:53→21:01)
[2023-03-08] MEDS: VANCOMYCIN 750MG PREMIX 150 ML IV SCH (12:49)
[2023-03-08 15:18] LABS: ANISOCYTOSIS 1+; PLATELET ESTIMATE INCREASED
[2023-03-08] MEDS: ATORVASTATIN CALCIUM 40MG TABLET PO SCH (20:40)
[2023-03-08] MEDS: RISPERIDONE 1MG TABLET PO SCH (20:41)
[2023-03-08] MEDS: FAMOTIDINE 20MG TABLET PEG SCH (21:00)
[2023-03-08] MEDS: LATANOPROST 0.005% OPHTH DROPS 2.5ML LEFTEYE SCH (21:01)
[2023-03-09] VITALS (21 sets, daily range): BP systolic 86–134; BP diastolic 47–88; PULSE 101–120; RESP 35–48; TEMP 97.8–101.5; O2SAT 94–99
[2023-03-09] MEDS: CEFEPIME 2,000 MG in DEXT 5% WATER 100 ML IV SCH (01:53)
[2023-03-09] MEDS: IPRATROPIUM BROMIDE (0.02%) 0.5MG/2.5ML NEB HHN SCH ×5 (02:24→20:52)
[2023-03-09] MEDS: METRONIDAZOLE 500 MG PREMIX 100 ML IV SCH (05:31)
[2023-03-09 05:33] LABS: BASOPHILS % 0.3 % (0.0-2.0); DIFFERENTIAL COMMENT 0; EOSINOPHILS % 2.8 % (0.0-5.0); HEMATOCRIT. 21.2 % (36.0-48.0); LYMPHOCYTES % 8.1 % (20.0-50.0); MEAN CORPUSCULAR HEMOGLOBIN 29.3 pg (28.0-32.0); MEAN CORPUSCULAR HGB CONC 31.5 g/dL (31.0-37.0); MEAN PLATELET VOLUME 9.9 fl (7.4-10.4); MONOCYTES % 6.4 % (2.0-8.0); NEUTROPHILS % 82.4 % (40.0-76.0); PLATELET 410 x1000/uL (130-400); RED BLOOD CELL COUNT 2.28 mill/uL (4.2-5.4); RED CELL DISTRIBUTION WIDTH 16.7 % (11.6-14.6)
[2023-03-09 05:53] LABS: POTASSIUM 5.2 mEq/L (3.5-5.1)
[2023-03-09] MEDS: SODIUM CHLORIDE 0.9% INJ 3ML FLUSH IVF SCH ×3 (06:00→21:34)
[2023-03-09 06:04] LABS: CALCIUM 9.3 mg/dL (8.5-10.1); CREATININE 2.2 mg/dL (0.6-1.3)
[2023-03-09 06:46] LABS: HEMOGLOBIN. 6.7 g/dL (12.0-16.0)
[2023-03-09] MEDS: BRIMONIDINE 0.2% OPHTH DROPS 5ML LEFTEYE SCH ×3 (06:47→21:35)
[2023-03-09] MEDS: LACTULOSE 20G/30ML UDC PEG SCH ×3 (06:47→21:34)
[2023-03-09] MEDS: DOCUSATE SODIUM SUGAR FREE 100MG/10ML UDC GT SCH (08:44)
[2023-03-09] MEDS: CHOLECALCIFEROL (D3) 1000 UNIT TABLET PO SCH (08:45)
[2023-03-09] MEDS: FOLIC ACID 1MG TABLET PO SCH (08:45)
[2023-03-09] MEDS: THIAMINE HCL 100MG TABLET GT SCH (08:45)
[2023-03-09] MEDS: ASPIRIN 81MG TABLET PO SCH (08:45)
[2023-03-09] MEDS: NICOTINE 7MG PATCH TD SCH (08:53)
[2023-03-09] MEDS: DORZOLAM/TIMOLOL 2.23/0.68% OPHTH DROPS 10ML LEFTEYE SCH ×2 (08:53→21:33)
[2023-03-09] MEDS: METOPROLOL TARTRATE 25MG TABLET GT SCH ×2 (08:58→21:33)
[2023-03-09] MEDS: AMLODIPINE 5MG TABLET PEG SCH ×2 (08:58→21:34)
[2023-03-09] MEDS ORDERED: CEFEPIME 1,000 MG in DEXTROSE 5% WATER 50 ML IV SCH (17:00)
[2023-03-09 17:29] LABS: HEMATOCRIT 24.1 % (36.0-48.0); HEMOGLOBIN 7.4 g/dL (12.0-16.0)
[2023-03-09] MEDS ORDERED: METRONIDAZOLE 500 MG PREMIX 100 ML IV SCH (21:00)
[2023-03-09] MEDS: LATANOPROST 0.005% OPHTH DROPS 2.5ML LEFTEYE SCH (21:33)
[2023-03-09] MEDS: FAMOTIDINE 20MG TABLET PEG SCH (21:34)
[2023-03-09] MEDS: ATORVASTATIN CALCIUM 40MG TABLET PO SCH (21:34)
[2023-03-09] MEDS: RISPERIDONE 1MG TABLET PO SCH (21:34)
[2023-03-09] MEDS: ACETAMINOPHEN 650MG/20.3ML UDC PO PRN (21:37)
[2023-03-10] VITALS (12 sets, daily range): BP systolic 48–126; BP diastolic 33–71; PULSE 61–108; RESP 12–44; TEMP 98.7–99.2; O2SAT 92
[2023-03-10] MEDS: IPRATROPIUM BROMIDE (0.02%) 0.5MG/2.5ML NEB HHN SCH (01:19)
[2023-03-10 02:45] LABS: BG CARBOXYHEMOGLOBIN 0.1 % (0.5-1.5); BG DEOXYHEMOGLOBIN 7.7 % (0.0-5.0); BG FRACTION INSPIRED OXYGEN 50; BG HCO3 ACT 17.3 mmol/L (22.0-26.0); BG METHEMOGLOBIN 0.3 % (0.0-1.5); BG OXYGEN SATURATION 92.3 % (92.0-98.5); BG OXYHEMOGLOBIN 91.9 % (94.0-97.0); BG PCO2 34.6 mmHg (35.0-45.0); BG PH 7.318 (7.350-7.450); BG PO2 69.2 mmHg (75.0-100.0); BG SAMPLE SITE RIGHT RADIAL; BG TOTAL HEMOGLOBIN 8.2 g/dL (12.0-18.0); BG VENT MODE MASK - SIMPLE
[2023-03-10] MEDS ORDERED: NOREPINEPHRINE 8 MG in DEXT 5% WATER 242 ML IV PRN (05:30)
[2023-03-10] MEDS ORDERED: NOREPINEPHRINE 8MG/250ML PMX 250ML IV PRN (05:45)
[2023-03-10] MEDS: LACTULOSE 20G/30ML UDC PEG SCH (06:00)
[2023-03-10] MEDS: SODIUM CHLORIDE 0.9% INJ 3ML FLUSH IVF SCH (06:00)
[2023-03-10 06:01] LABS: BG BASE EXCESS -21.9 mmol/L (-2.0-2.0); BG CARBOXYHEMOGLOBIN 0.3 % (0.5-1.5); BG DEOXYHEMOGLOBIN 5.2 % (0.0-5.0); BG FRACTION INSPIRED OXYGEN 100; BG METHEMOGLOBIN 0.3 % (0.0-1.5); BG OXYGEN SATURATION 94.8 % (92.0-98.5); BG OXYHEMOGLOBIN 94.2 % (94.0-97.0); BG PCO2 66.2 mmHg (35.0-45.0); BG PH 6.837 (7.350-7.450); BG PO2 118.8 mmHg (75.0-100.0); BG SAMPLE SITE RIGHT RADIAL; BG VENT MODE VENT - AC
[2023-03-10 06:17] LABS: BASOPHILS % 0.2 % (0.0-2.0); EOSINOPHILS % 2.9 % (0.0-5.0); HEMATOCRIT. 23.1 % (36.0-48.0); HEMOGLOBIN. 7.2 g/dL (12.0-16.0); LYMPHOCYTES % 9.9 % (20.0-50.0); MEAN CORPUSCULAR HEMOGLOBIN 29.5 pg (28.0-32.0); MEAN CORPUSCULAR HGB CONC 31.3 g/dL (31.0-37.0); MEAN CORPUSCULAR VOLUME 94.1 fL (81.0-99.0); MEAN PLATELET VOLUME 10.1 fl (7.4-10.4); MONOCYTES % 7.5 % (2.0-8.0); NEUTROPHILS % 79.5 % (40.0-76.0); PLATELET 390 x1000/uL (130-400); RED BLOOD CELL COUNT 2.46 mill/uL (4.2-5.4); RED CELL DISTRIBUTION WIDTH 17.1 % (11.6-14.6); WHITE BLOOD COUNT 16.5 x1000/uL (4.5-11.0)
[2023-03-10] MEDS: SODIUM BICARBONATE 8.4% 1 MEQ/ML 50ML SYR IV NR ×2 (06:30→07:14)
[2023-03-10] MEDS: BRIMONIDINE 0.2% OPHTH DROPS 5ML LEFTEYE SCH (06:33)
[2023-03-10 06:58] LABS: CHLORIDE 125 mEq/L (98-107); INDEX HEMOLYSI 1 (1-3); INDEX ICTERIC 1 (1-4); INDEX LIPEMIC 1 (1-3); POTASSIUM 5.9 mEq/L (3.5-5.1); SODIUM 147 mEq/L (136-145)
[2023-03-10 07:04] LABS: CALCIUM 8.8 mg/dL (8.5-10.1); CARBON DIOXIDE 20 mEq/L (21-32); CREATININE 2.8 mg/dL (0.6-1.3); GLUCOSE 92 mg/dL (70-105); UREA NITROGEN BLOOD 58 mg/dL (7-21)
[2023-03-10] MEDS ORDERED: MORPHINE SULFATE 100 MG in DEXT 5% WATER 90 ML IV PRN (08:15)
[2023-03-10 09:50] LABS: PREALBUMIN < 3.0 mg/dL (20.0-40.0)
== END 2023-03-10 08:31 | DRG 469 ==
LOC: ER 10:14 → 7WST 12:58 → EDBEDREQ 13:03 → 6WST 02-20 00:09 → 5EST 03-04 13:49
PROVIDERS: ADMIT Internal Medicine; ATTEND Internal Medicine
PROC: 0DH63UZ Insertion of Feeding Device into Stomach, Percutaneous Approach (ICD-10-PCS; principal; 2023-02-18)
PROC: 30233N1 Transfusion of Nonautologous Red Blood Cells into Peripheral Vein, Percutaneous Approach (ICD-10-PCS; 2023-03-04)
PROC: 5A1935Z Respiratory Ventilation, Less than 24 Consecutive Hours (ICD-10-PCS; 2023-03-10)
PROC: 5A12012 Performance of Cardiac Output, Single, Manual (ICD-10-PCS; 2023-03-10)
PROC: 0BH17EZ Insertion of Endotracheal Airway into Trachea, Via Natural or Artificial Opening (ICD-10-PCS; 2023-03-10)
DX: N17.9 Acute kidney failure, unspecified (principal); J96.01 Acute respiratory failure with hypoxia; A41.51 Sepsis due to Escherichia coli [E. coli]; J18.9 Pneumonia, unspecified organism; E46 Unspecified protein-calorie malnutrition; J44.0 Chronic obstructive pulmonary disease with (acute) lower respiratory infection; I11.0 Hypertensive heart disease with heart failure; E88.09 Other disorders of plasma-protein metabolism, not elsewhere classified; C34.90 Malignant neoplasm of unspecified part of unspecified bronchus or lung; E87.1 Hypo-osmolality and hyponatremia; I50.32 Chronic diastolic (congestive) heart failure; R62.7 Adult failure to thrive; N39.0 Urinary tract infection, site not specified; D64.9 Anemia, unspecified; E87.6 Hypokalemia; Z20.822 Contact with and (suspected) exposure to COVID-19; Z66 Do not resuscitate; F20.9 Schizophrenia, unspecified; S30.0XXA Contusion of lower back and pelvis, initial encounter; K29.80 Duodenitis without bleeding; K29.70 Gastritis, unspecified, without bleeding; E78.00 Pure hypercholesterolemia, unspecified; R13.10 Dysphagia, unspecified; K44.9 Diaphragmatic hernia without obstruction or gangrene; Z68.35 Body mass index [BMI] 35.0-35.9, adult; Z93.1 Gastrostomy status; Z79.899 Other long term (current) drug therapy; X58.XXXA Exposure to other specified factors, initial encounter; Y93.89 Activity, other specified; Y92.89 Other specified places as the place of occurrence of the external cause; Y99.8 Other external cause status
CPT/HCPCS: 31500; 36415; 36600; 71045; 74018; 74176; 78580; 80048; 80053; 80202; 81003; 82040; 82270; 82375; 82607; 82728; 82746; 82805; 82962; 83540; 83550; 83605; 83735; 83880; 84100; 84134; 84145; 84443; 84484; 85014; 85018; 85025; 85044; 85379; 86803; 86850; 86900; 86920; 87077; 87186; 87340; 87426; 93005; 93306; 93970; 94002; 94003; 94640; 99285; A6261; C1893; C9113; J0360; J0690; J0692; J0696; J1630; J1650; J1940; J2704; J2765; J3370; J3480; J3490; J7030; J7042; J7060; J7070; J7626; P9016; A4315